=== PATIENT | male | born 1965 | race Caucasian/White ===

== ENCOUNTER 2023-12-18 02:32 | Emergency (ER) | payer OTHER, SELFPAY ==
[2023-12-18 02:33] VITALS: BP 138/84; PULSE 80; RESP 20; TEMP 36.2; O2SAT 97; BMI 30.6
[2023-12-18 02:35] VITALS: BP 138/84; PULSE 77; RESP 22; TEMP 36.2; O2SAT 98
--- NOTE | 2023-12-18 02:45 | EDS_ITS ---
HPI History of Present Illness Chief Complaint: Syncope Detail of Chief Complaint: Syncope, cramping lower abdominal pain, change in bowels and shaking LEs Informant: patient and spouse/S.O. Onset/Context/Timing Onset: Today Context: Sudden Onset Timing: Intermittent Quality: New syncopal episode Location: Residence Current Severity: Mild Maximum Severity: Severe Worsened by: Difficulty using restroom and abdominal pain Relieved by: Not applicable Associated Symptoms Associated Symptoms: Nausea, diaphoresis, pallor Narrative Narrative: Patient is a 58-year-old male with history of type 1 diabetes, hypertension, hyperlipidemia and hypothyroidism. Patient's last bowel movement was 0 and December 17.Patient to went to use restroom. He was unable to defecate. He began to walk when he became lightheaded fell. arrived he was pale he was diaphoretic. He is not on antithrombotic or anticoagulant. There was no loss conscious. Denies headache. He denies head pain. He denies malalignment of his teeth. He denies neck pain. He denies paresthesia, anesthesia or motor weakness. He denies cardiac or respiratory symptoms. He denies black or maroon-colored stool. He does endorse hard small stools for the past couple of days. He denies dysuria, frequency, urgency or hematuria. Denies according to his his mother had a history of renal stones. He informed me that he was not close to his parents. His also informed that his mother had a AAA. He denies back pain. Prior similar symptoms: No Recent Illness/Hospitalization: No [facility], [facility] Medical History (Updated 12/18/23 @ 04:[address] Javed Perez MD) Hypothyroid Type 1 diabetes Home Medications atorvastatin 20 mg tablet 20 mg PO DAILY 12/18/23 [History Last Taken Unknown] blood sugar diagnostic (OneTouch Verio test strips) 12/18/23 [History Last Taken Unknown] insulin aspart (niacinamide) (U-100) 100 unit/mL subcutaneous solution (Fiasp U- 100 Insulin) 80 unit subcut DAILY 12/18/23 [History Last Taken Unknown] insulin aspart (niacinamide)(U-100) 100 unit/mL(3 mL) subcutaneous pen (Fiasp FlexTouch U-100 Insulin) 1 sliding scale dose subcut PRN PRN carb ratio 12/18/23 [History Last Taken Unknown] levothyroxine 112 mcg tablet 112 mcg PO DAILY 12/18/23 [History Last Taken Unknown] lisinopril 10 mg tablet 10 mg PO DAILY 12/18/23 [History Last Taken Unknown] tirzepatide 2.5 mg/0.5 mL subcutaneous pen injector (Mounjaro) 5 mg subcut QWEEK 12/18/23 [History Last Taken Unknown] Allergy/AdvReac Type Severity Reaction Status Date / Time No Known Allergies Allergy Verified 12/18/23 02:35 Surgical History no surgical history no surgical history Social History (Updated 12/18/23 @ 02:[address] Javed Perez MD) household members: spouse and children Smoking Status: Never smoker ROS ROS ED Constitutional Constitutional ED: Denies chills, fever(s), subjective, sweats or weight loss Eyes Eyes: Denies blurry vision, change in vision or diplopia ENT ENT ED: Denies ear pain, rhinorrhea or sore throat Cardiovascular Cardiovascular: Denies chest pain, palpitations or racing heartbeat Respiratory/Chest Respiratory/Chest: Denies cough, dyspnea or dyspnea on exertion Gastrointestinal Gastrointestinal: Reports abdominal pain and nausea; Denies constipation, diarrhea, melena or vomiting Genitourinary Genitourinary ED: Denies dysuria, hematuria or urinary frequency Musculoskeletal Musculoskeletal: Denies back pain or neck pain Neurologic Neurologic: Denies headache(s) Hematologic/Lymphatic Hematologic/Lymphatic: Reports systems reviewed and no addt'l complaints, except as documented EXAM Physical Exam Const Vital Signs: 12/18/23 02:33 12/18/23 02:35 12/18/23 02:37 Temperature 97.1 F L 97.1 F L Temperature Source Temporal Temporal Pulse Rate 80 77 Pulse Rate [Lying] Pulse Rate [Sitting (for 1 minute prior to obtaining)] Pulse Rate [Standing (for 1 minute prior to obtaining)] Respiratory Rate 20 H 22 H Respiratory Effort Normal Respiratory Pattern Normal Blood Pressure 138/84 H 138/84 H Blood Pressure [Lying] Blood Pressure [Sitting (for 1 minute prior to obtaining)] Blood Pressure [Standing (for 1 minute prior to obtaining)] Blood Pressure Mean 102 102 Blood Pressure Mean [Lying] Blood Pressure Mean [Sitting (for 1 minute prior to obtaining)] Blood Pressure Mean [Standing (for 1 minute prior to obtaining)] Pulse Ox 97 98 Oxygen Delivery Method Room Air Room Air 12/18/23 03:38 Temperature Temperature Source Pulse Rate Pulse Rate [Lying] 70 Pulse Rate [Sitting (for 1 minute prior to obtaining)] 77 Pulse Rate [Standing (for 1 minute prior to obtaining)] 79 Respiratory Rate Respiratory Effort Respiratory Pattern Blood Pressure Blood Pressure [Lying] 138/72 H Blood Pressure [Sitting (for 1 minute prior to obtaining)] 134/80 H Blood Pressure [Standing (for 1 minute prior to obtaining)] 127/79 H Blood Pressure Mean Blood Pressure Mean [Lying] 94 Blood Pressure Mean [Sitting (for 1 minute prior to obtaining)] 98 Blood Pressure Mean [Standing (for 1 minute prior to obtaining)] 95 Pulse Ox Oxygen Delivery Method Positive well nourished and well developed Constitutional Narrative: Patient intermittently grimaces. He also has shaking of his legs. This occurs when he is having pain. Vital signs remarkable slightly low blood pressure. General Appearance ED: well developed; Negative for pallor HEENT Reports moist mucous membranes HEENT Narrative: There is an abrasion left forehead region. There is also a superficial skin tear/laceration left ear. The external auditory canal is normal. TMs are normal other than scarring from prior infections on the right. There is no clinical findings of basilar skull fracture. There is no septal deviation hematoma. There is no pain palpation over the left or right TMJ with opening closing his mouth close no evidence of malocclusion. Length of laceration 1 cm. Eyes PERRL and EOMs intact bilaterally Eyes Narrative: There is no subconjunctival hemorrhage. There is no nystagmus. General Eye ED: Negative for pale conjunctiva or scleral icterus Neck no lymphadenopathy, supple and no JVD Neck Narrative: There is no posterior midline pain with movement or palpation. Chest Wall inspection of chest normal and palpation of chest normal Resp normal respiratory effort and clear to auscultation bilaterally Cardio regular rate, regular rhythm, S1 normal heart sound, S2 normal heart sound and no murmurs GI Negative for non-tender, non-distended or hepatosplenomegaly GI Narrative: There is no pulsatile mass or abdominal bruit. There is mild discomfort to deep palpation lower quadrants. Inspection: abdominal distention Auscultation: hypoactive bowel sounds Palpation: soft; Negative for guarding, splenomegaly, mass or rebound tenderness present Back/Spine no CVA tenderness Extremity normal to inspection General Extremety ED: Negative for edema or tenderness General Extremity: Negative for edema Neuro oriented x3, CN's II-XII intact bilaterally and no sensory deficits noted Sensorium / Orientation: alert Motor Exam: strength 5/5 throughout Psych mental status grossly normal Psych Narrative: Patient became agitated because of the pain and does not know why he is having pain in his legs shaking. He was informed that is why I am asking questions. Skin no rashes or lesions noted and skin turgor normal Skin Narrative: Superficial laceration is noted left ear. General Skin Exam: elasticity normal; Negative for jaundice or pallor Trauma: abrasion MDM MDM MDM Narrative Medical decision making narrative: Based on the [place] CT head rule and [place] rule imaging of the head is not indicated or needed. C-spine was cleared per Nexus criteria. BGT was performed by nursing staff since he is diabetic. He is not hypoglycemic. Tetanus was updated. KUB was obtained. Concern patient may have obstipation as a cause of his cramping lower abdominal pain and difficulty having bowel movements. Patient's near single episode was due to vasovagal episode based on history. Patient was placed on the monitor to assess for any dysrhythmia. CBC was obtained assess white count and H&H. I was informed by nursing staff at 0303 that patient went to the restroom and states he had very dark black stool. Unfortunately, he flushed the toilet and this could not be inspected. Rectal exam was performed for this reason. There is no fissures, fistulas or hemorrhoids noted. Patient has good rectal tone. Prostate is normal size. Material that was in the rectum is a light brown in color. Stool was sent for Hemoccult. History & Record Review Additional record(s) reviewed:: Prior outpatient record (Laboratory results from the clinic clinic drawn on November 01 revealed a normal comprehensive metabolic panel and lipid panel. TSH was slightly low at 0.11. Patient states his Synthroid dose was adjusted downward.), Prior labs and No prior records (At [facility]. He is a clinic clinic patient. Will look for any recent laboratory studies on [facility].) Lab Data Attestation: I reviewed the patient's lab results. Lab results narrative: White count is elevated with predominant lymphocytes. H&H and indices are normal. Blood sugar was slightly elevated 123. Basic metabolic panel reveals a glucose of 136 with normal CO2 anion gap. BUN is slightly low at 19 with a creatinine of 1.1 and a BUN to creatinine ratio 17:1. Stool for occult blood is positive. Since patient had a near syncopal spell will obtain orthostatic vital signs. UA is remarkable so. 1.025 and ketones otherwise negative. Labs: Laboratory Results - last 24 hr 12/18/23 12/18/23 12/18/23 02:38 02:50 04:20 WBC 12.7 H RBC 5.23 Hgb 14.0 Hct 43.9 MCV 83.9 MCH 26.8 L MCHC 31.9 L RDW Std Deviation 43.1 RDW Coeff of Lauren 14.0 Plt Count 256 MPV 9.4 Immature Gran % (Auto) 0.200 Neut % (Auto) 45.9 L Lymph % (Auto) 41.8 H Clinch % (Auto) 6.5 Eos % (Auto) 4.7 Baso % (Auto) 0.9 Absolute Neuts (auto) 5.8 Absolute Lymphs (auto) 5.32 H Nucleated RBC % 0 Differential Comment SCANNED Diff Path Review May foll Sodium 140 Potassium 3.5 Chloride 109 H Carbon Dioxide 26.0 Anion Gap 5 BUN 19 H Creatinine 1.10 Estim Creat Clear Calc 87.98 Est GFR (MDRD) Af Amer 88 Est GFR (MDRD) Non-Af 73 BUN/Creatinine Ratio 17.3 Glucose 136 H Calcium 9.5 Urine Color Yellow Urine Clarity Clear Urine pH 5.0 Ur Specific [place] 1.025 Urine Protein Negative Urine Glucose (UA) Normal Urine Ketones 50 H Urine Occult Blood Negative Urine Nitrite Negative Urine Bilirubin Negative Urine Urobilinogen Normal Ur Leukocyte Esterase Negative Urine RBC 0 SEEN Urine WBC 0 SEEN Ur Squamous Epith Cells 0 SEEN Urine Bacteria 0 SEEN Urine Mucus 0 SEEN POC Glucose 123 H Radiography Chest X-Ray - ED: Read by ED Physician (Three-view x-ray of the abdomen was obtained. The chest portion reveals normal cardiac silhouette size. There is no widening of mediastinum. There is no perihilar lymphadenopathy. Lung parenchyma is normal. There is no evidence of pneumothorax or effusion. Osseous structures were unremarkable.) Diagnostic Testing: Clinical Impression(s) from Imaging Studies Acute Abdomen Series 12/18/23 03:15 IMPRESSION: 1. Liquid feces in the transverse colon, which may be due to malabsorption. Ileus is not excluded. 2. Otherwise, nonspecific nonobstructive bowel gas pattern. 3. No evidence for acute cardiopulmonary pathology. Electronically Signed: Renato Sosa MD at 3:40 EST Reading Location ID and State: [facility] / [place] , Service support , Rhythm Strip Rhythm Strip: Sinus Rhythm Rate: 78 Ectopy: None Treatment and Re-Evaluation :: I was informed by his nurse at 0400 that orthostatics were negative. He still complain of cramping abdominal pain. Will at this point treat with Bentyl for the cramping pain. This could be bladder spasm. Awaiting UA. Also with him having chills and leukocytosis slight elevated white count this may be due to viral illness. Will treat with 600 mg of acetaminophen. Patient was informed of his laboratory results at 0444. He states he feels better and would like to go home. Discharge Plan Triage Chief Complaint: Syncope ED Provider: Javed Perez Dx/Rx/DC Orders Clinical Impression: Vasovagal near syncope, Leukocytosis, Forehead contusion, Controlled type 1 diabetes mellitus with hyperglycemia, History of hypothyroidism, Positive fecal occult blood test, Laceration of ear, external, left, Acute dehydration, Ketosis Instructions: ED Laceration Superficial No Stitch, ED Near-Fainting- Vagal Reaction Prescriptions: No Action atorvastatin 20 mg tablet 20 mg PO DAILY Patient Comments: TAKE 1 TABLET BY MOUTH EVERY DAY (DME) OneTouch Verio test strips Strip MISCELLANEOUS Patient Comments: TEST 6 TIMES PER DAY Fiasp U-100 Insulin 100 unit/mL solution 80 unit subcut DAILY Patient Comments: USE 80 UNITS IN PUMP DAILY levothyroxine 112 mcg tablet 112 mcg PO DAILY Patient Comments: TAKE 1 TABLET BY MOUTH ONCE DAILY. TAKE ON EMPTY STOMACH. FOR THYROID. Fiasp FlexTouch U-100 Insulin 100 unit/mL (3 mL) insulin pen 1 sliding scale dose SUBCUT PRN PRN (Reason: carb ratio) Patient Comments: USE CARB RATIO 1:7 AND SENSITIVITY 1:25 TARGET 120 MG/DL, MAX DOSE 45 UNITS lisinopril 10 mg tablet 10 mg PO DAILY Patient Comments: TAKE 1 TABLET BY MOUTH EVERY DAY Mounjaro 2.5 mg/0.5 mL pen injector 5 mg SUBCUT QWEEK Patient Comments: INJECT 2.5 MG SUBCUTANEOUSLY WEEKLY Primary Care Provider: Rafael Gonsales Referrals: Rafael Gonsales MD [Primary Care Provider] - As Needed Disposition Disposition: Home, Self Care
[2023-12-18 02:55] LABS: Bedside Glucose 123 mg/dL (74-106)
[2023-12-18 03:08] LABS: Absolute Lymphocyte Count 5.32 X10^3/uL (0.83-4.51); Absolute Neutrophil Count 5.8 X10^3/uL (2.0-7.7); Basophil# 0.11 X10^3/uL; Basophil% 0.9 % (0-1); Eosinophils% 4.7 % (0-5); Hematocrit 43.9 % (40-54); Lymphocyte # 5.32 X10^3/ul (0.83-4.51); Lymphocyte % 41.8 % (19-41); Mean Corp Hgb Conc 31.9 g/dL (32-36); Mean Corpuscular Hgb 26.8 pg (27.0-32.0); Mean Corpuscular Volume 83.9 fL (80-94); Mean Platelet Vol. 9.4 fl (6.2-12.0); Monocyte# 0.83 X10^3/uL; Monocyte% 6.5 % (0-10); NRBC Flagged by Analyzer 0 % (0-5); Neutrophil # 5.84 X10^3/uL (2.7-7.7); Neutrophil % 45.9 % (47-70); POSITIVE DIFFERENTIAL YES; POSITIVE MORPHOLOGY YES; Platelet Count 256 K/mm3 (150-450); RBC Distribution Width SD 43.1 fl (35.1-43.9); Red Blood Count 5.23 M/mm3 (4.6-6.2); White Blood Count 12.7 K/mm3 (4.4-11.0)
[2023-12-18 03:11] LABS: Differential Indicated SCAN CRITERIA MET
--- NOTE | 2023-12-18 03:15 | RAD_ITS ---
EXAM: XR ABDOMEN, 2 VIEWS AND XR CHEST, 1 VIEW CLINICAL INDICATION: Cramping abdominal pain, obstipation Cramping abdominal pain, obstipation TECHNIQUE: Frontal view of the chest, frontal view of the abdomen/pelvis and upright or decubitus view of the abdomen. COMPARISON: No relevant prior studies available. FINDINGS: CHEST: LUNGS AND PLEURAL SPACES: Unremarkable. No consolidation or edema. No pneumothorax. No effusion. HEART: Unremarkable. Cardiac silhouette not enlarged. MEDIASTINUM: Central airways and mediastinal contour are unremarkable. ABDOMEN: INTRAPERITONEAL SPACE: No free air. GASTROINTESTINAL TRACT: There are air-fluid levels in the transverse colon on upright views, which suggest impending diarrhea. This may be due to malabsorption. Non-obstructive. No bowel or stomach distention. ORGANS: Unremarkable as visualized. No organomegaly. No abnormal calcifications. TUBES, LINES AND DEVICES: None. BONES/JOINTS: There are multilevel degenerative changes in the visualized spine. SOFT TISSUES: No acute findings. RAD/Acute Abdomen Inc Chest IMPRESSION: 1. Liquid feces in the transverse colon, which may be due to malabsorption. Ileus is not excluded. 2. Otherwise, nonspecific nonobstructive bowel gas pattern. 3. No evidence for acute cardiopulmonary pathology. Electronically Signed: Renato Sosa MD at 3:40 EST Reading Location ID and State: [facility] / [place] , Service support ,
--- OUTSIDE RECORDS SUMMARY | 2023-12-18 03:20 | XMS RPT_ITS | CCD ---
Author Name Unknown Address Formerly [facility] [place] [address] Organization [facility] Care Team Providers Care Technical Account Executive Name Role Phone Tristin NOVAK, Rafael Dasilva Primary Care Provider TRISTIN, RAFAEL Dasilva Primary Care Unavailable BABIUCH, EMILY Referring Unavailable BABIUCH, EMILY Attending Unavailable CROW, RAFAEL Dasilva Primary Care Unavailable BABIUCH, EMILY Attending Unavailable BABIUCH, EMILY Referring Unavailable BABIUCH, EMILY Attending Unavailable CROW, RAFAEL Dasilva Primary Care Unavailable BABIUCH, EMILY Referring Unavailable BABIUCH, EMILY Attending Unavailable CROW, RAFAEL Dasilva Primary Care Unavailable BABIUCH, EMILY Referring Unavailable CROW, RAFAEL Dasilva Primary Care Unavailable WINIFRED BROOKS Attending Unavailable WINIFRED BROOKS Referring Unavailable CROW, RAFAEL Dasilva Primary Care Unavailable CROW, RAFAEL Dasilva Primary Care Unavailable CROW, RAFAEL Dasilva Attending Unavailable BABIUCH, EMILY Attending Unavailable CROW, ROHAN Primary Care Unavailable BABIUCH, EMILY Referring Unavailable CROW, RAFAEL Dasilva Primary Care Unavailable WINIFRED BROOKS Attending Unavailable CROW, RAFAEL Dasilva Primary Care Unavailable WINIFRED BROOKS Attending Unavailable CROW, ROHAN Primary Care Unavailable BABIUCH, EMILY Attending Unavailable CROW, ROHAN Primary Care Unavailable BABIUCH, EMILY Referring Unavailable CROW, RAFAEL Dasilva Referring Unavailable CROW, ROHAN Primary Care Unavailable CROW, RAFAEL Dasilva Attending Unavailable TRISTIN, ROHAN Primary Care Unavailable Medications Current Medications Medication Drug Class(es) Dates Sig (Normalized) Sig (Original) phenylephrine hydrochloride 25 mg/ml ophthalmic solution (1 source) alpha-1 Adrenergic Agonist Start: 02-22-2023 End: 02-22-2023 PHENYLephrine 2.5 % 1 Drop (AK-DILATE, HALEIGH-SYNEPHRINE) tropicamide 10 mg/ml ophthalmic solution (1 source) Anticholinergic Start: 02-22-2023 End: 02-22-2023 tropicamide 1 % 1 Drop (MYDRIACYL) Completed/Discontinued Medications Medication Drug Class(es) Dates Sig (Normalized) Sig (Original) 0.05 ml aflibercept 40 mg/ml injection (6 sources) Vascular Endothelial Growth Factor Inhibitor Start: 07-12-2023 End: 07-12-2023 aflibercept intravitreal injection 2 mg/0.05 mL (EYLEA) Problems Problem Classification Problem Date Documented Date Episodic/Chronic Diabetes mellitus with complications (20 sources) Type 1 diabetes mellitus; Translations: [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, right eye] Onset: 09-14-2016 09-14-2016 Chronic Diabetes mellitus without complication (1 source) Insulin pump present; Translations: [Presence of insulin pump (external) (internal)] 07-21-2023 Episodic Disorders of lipid metabolism (20 sources) Hyperlipidemia; Translations: [Hyperlipidemia, unspecified] Onset: 11-03-2015 11-03-2015 Chronic Esophageal disorders (1 source) Gastroesophageal reflux disease without esophagitis; Translations: [Gastro-esophageal reflux disease without esophagitis] 10-19-2023 Chronic Essential hypertension (20 sources) Hypertensive disorder; Translations: [Essential (primary) hypertension] Onset: 11-03-2015 11-03-2015 Chronic Fever of unknown origin (1 source) Fever, unspecified; Translations: [Fever, unspecified] Episodic Immunizations and screening for infectious disease (1 source) Vaccination needed; Translations: [Encounter for immunization] Episodic Other nutritional; endocrine; and metabolic disorders (20 sources) Obese class I; Translations: [Obesity, unspecified] Onset: 04-23-2019 04-23-2019 Chronic Other nutritional; endocrine; and metabolic disorders (3 sources) Insulin resistance; Translations: [Metabolic syndrome] Chronic Thyroid disorders (20 sources) Acquired hypothyroidism; Translations: [Hypothyroidism, unspecified] Onset: 11-03-2015 11-03-2015 Chronic Results Test Name Value Interpretation Reference Range Facil ity Vital Signs Date Time Vital Sign Value Performing Clinician Ramya bacon 06-17-2023 09:44-0400 Body weight 99.79 kg Rafael Crow MD Work Phone: [facility] 06-17-2023 09:44-0400 Diastolic blood pressure 82 mm[Hg] Rafael Crow MD Work Phone: [facility] 06-17-2023 09:44-0400 Heart rate 72 /min Rafael Crow MD Work Phone: [facility] 06-17-2023 09:44-0400 Respiratory rate 18 /min Rafael Crow MD Work Phone: [facility] 06-17-2023 09:44-0400 Systolic blood pressure 118 mm[Hg] Rafael Crow MD Work Phone: [facility] 07-14-2022 08:27-0400 Body temperature 97.81 [degF] Rafael Crow MD Work Phone: [facility] 07-14-2022 08:27-0400 Body weight 97.52 kg Rafael Crow MD Work Phone: [facility] 07-14-2022 08:27-0400 Diastolic blood pressure 68 mm[Hg] Rafael Crow MD Work Phone: [facility] 07-14-2022 08:27-0400 Heart rate 64 /min Rafael Crow MD Work Phone: [facility] 07-14-2022 08:27-0400 Respiratory rate 16 /min Rafael Crow MD Work Phone: [facility] 07-14-2022 08:27-0400 Systolic blood pressure 118 mm[Hg] Rafael Crow MD Work Phone: [facility] Encounters Encounter Date Encounter Type Care Provider Facility Start: 11-22-2023 End: 11-22-2023 ambulatory RAFAEL CROW Facility:[facility] Start: 11-09-2023 End: 11-09-2023 ambulatory RAFAEL CROW Facility:[facility] Start: 11-01-2023 End: 11-02-2023 ambulatory RAFAEL CROW Facility:[facility] Start: 10-31-2023 Telephone encounter Rafael morejon MD Work Phone: Internal [facility] Procedures Date Procedure Procedure Detail Performing Clinician Start: 08-26-2023 PFIZER-BIONTECH COVI D-19 VACCINE ( SEASON) AGE 12+ YR Fabiola Fuller MD Work Phone: Start: 08-26-2023 INFLUENZA VACCINE, A GE 6 MO - 64 YR, QUADRIVALENT (AFLURIA, FLULAVAL, FLUZONE) Fabiola Fuller MD Work Phone: Start: 07-12-2023 End: 07-12-2023 Intravitreal njx pharmacologic agt spx Emily Abrams MD Work Phone: Start: 07-12-2023 Computerized ophthal richard imaging retina Emily Abrams MD Work Phone: Start: 02-22-2023 End: 02-22-2023 Intravitreal njx pharmacologic agt spx Emily Abrams MD Work Phone: Start: 02-22-2023 Computerized ophthal richard imaging retina Emily Abrams MD Work Phone: Start: 12-14-2022 End: 12-14-2022 Intravitreal njx pharmacologic agt spx Emily Abrams MD Work Phone: Start: 12-14-2022 Computerized ophthal richard imaging retina Emily Abrams MD Work Phone: Start: 09-24-2022 INFLUENZA VACCINE QUADRIVALENT 6 MO - 64 YRS IM Rafael Crow MD Work Phone: Start: 07-14-2022 PFIZER-BIONTECH COVI D-19 VACCINE, AGE 12+ YR ([facility] TOP) Rafael Crow MD Work Phone: Start: 07-14-2022 Adult depression scr eening assessment Rafael Crow MD Work Phone: Start: 02-26-2021 Adult depression scr eening assessment Fadi Mcconnell MD Work Phone: Start: 02-14-2018 Colonoscopy Fadi haddad MD Work Phone: Plan of Treatment Date Care Activity Detail Author Start: 09-10-2031 Urine microalbumin profile [facility] Start: 02-15-2028 Colonoscopy COLONOSCOPY [facility] Start: 02-15-2028 COLORECTAL CANCER SCREENING COLORECTAL CANCER SCREENING [facility] Start: 09-20-2024 Hepatitis C antibody, confirmatory test Dilated Retinal Exam [facility] Start: 07-06-2024 PROSTATE CANCER SCREENING DISCUSSION PROSTATE CANCER SCREENING DISCUSSION [facility] Start: 06-17-2024 3 comp foot exam completed DIABETIC FOOT EXAM [facility] Start: 06-17-2024 ANNUAL PCP TEAM CHRONIC DISEASE VISIT ANNUAL PCP TEAM CHRONIC DISEASE VISIT [facility] Start: 02-23-2024 Hepatitis C antibody, confirmatory test DILATED RETINAL EXAM [facility] Start: 11-02-2023 End: 02-01-2024 ALBUMIN/CREAT RATIO RND UR ALBUMIN/CREAT RATIO RND UR Lab Routine 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) Expected: 11/02/2023, Expires: 02/01/2024 [facility] Work Phone: Immunizations Immunization Date Immunization Notes Care Provider Nydia reddy 08-26-2023 COVID-19 vaccine, ag e 12+ yr, season (PFIZER-BIONTECH) Immunization Bishop Work Phone: [facility] Work Phone: 08-26-2023 influenza, injectabl e, quadrivalent, contains preservative Immunization Bishop Work Phone: [facility] Work Phone: 09-24-2022 influenza, injectabl e, quadrivalent, contains preservative Immunization Bishop Work Phone: [facility] Work Phone: 07-14-2022 COVID-19 vaccine, ag e 12+ yr (PFIZER-BIONTECH - [place] TOP) Rafael Crow MD Work Phone: [facility] Work Phone: 09-10-2021 influenza, injectabl e, quadrivalent, contains preservative Fadi Mcconnell MD Work Phone: [facility] Work Phone: 09-10-2021 tetanus toxoid, redu matthew diphtheria toxoid, and acellular pertussis vaccine, adsorbed Fadi Mcconnell MD Work Phone: [facility] Work Phone: 02-25-2021 COVID-19 vaccine, ag e 12+ yr (PFIZER-BIONTECH - [facility]) Fadi Mcconnell MD Work Phone: [facility] 02-04-2021 COVID-19 vaccine, ag e 12+ yr (PFIZER-BIONTECH - [facility]) Fadi Mcconnell MD Work Phone: [facility] Work Phone: 09-24-2020 pneumococcal polysaccharide vaccine, 23 valent Fadi Mcconnell MD Work Phone: [facility] Work Phone: 09-09-2020 influenza, seasonal, injectable Fadi Mcconnell MD Work Phone: [facility] Work Phone: 01-18-2020 zoster vaccine recombinant Fadi Mcconnell MD Work Phone: [facility] 08-24-2019 influenza, injectabl e, quadrivalent, contains preservative Fadi Mcconnell MD Work Phone: [facility] 2019 zoster vaccine recombinant Fadi Mcconnell MD Work Phone: [facility] Work Phone: 09-04-2018 influenza, seasonal, injectable Fadi Mcconnell MD Work Phone: [facility] Work Phone: 09-05-2017 influenza, injectabl e, quadrivalent, preservative free Fadi Mcconnell MD Work Phone: [facility] Work Phone: 08-30-2016 influenza, injectabl e, quadrivalent, preservative free Fadi Mcconnell MD Work Phone: [facility] Work Phone: 10-15-2015 influenza, seasonal, injectable Fadi Mcconnell MD Work Phone: [facility] Work Phone: 09-08-2015 influenza, seasonal, injectable, preservative free Fadi Mcconnell MD Work Phone: [facility] Work Phone: Payers Date Payer Category Payer Private Health Insurance [employer] [id number] 2018-Present [phone] [address] [place] [address] O [id number] 2018 Private Health Insurance [employer] [id number] 2018-Present [phone] [address] [place] [address] HMO [id number] 2018 Unknown [id number] Social History Date Type Detail Facility Start: 11-03-2015 End: 07-14-2022 Tobacco smoking status NHIS Never smoked tobacco [facility] Work Phone: Start: 11-03-2015 End: 07-14-2022 Tobacco use and exposure Smokeless tobacco non-user [facility] Work Phone: Start: 01-12-2022 End: 09-20-2023 Alcohol intake Current non-drinker of alcohol (finding) [facility] Start: 1965 Sex Assigned At Not on file C [facility] Start: 03-25-2022 End: 04-04-2022 Exposure to SARS-CoV-2 (event) Yes [facility] Start: 07-14-2022 History SDOH Physica l Activity DPW 4 [facility] Start: 07-04-2022 End: 07-14-2022 Exposure to SARS-CoV-2 (event) Not sure [facility] Work Phone: Start: 07-14-2022 End: 05-03-2023 History of Social function [facility] Work Phone: Start: 07-14-2022 End: 05-03-2023 Tobacco use panel [facility] Work Phone: Adult Depression Screening Assessment 0 [facility] Work Phone: Medical Equipment Procedure Code Equipment Code Equipment Origin al Text Equipment Identifier Dates Start: 12-05-2018 End: 10-21-2022 Goals Date Patient Goal Desired Activity /State Personal health goal Clinical Notes 07-12-2017 to 11-22-2023 Telephone Encounter - Karen Baires RN - 10/31/2023 4:58 PM ESTTelephone Encounter - Rafael Crow MD - 10/31/2023 4:42 PM ESTAddendum Note - Winifred Brooks MD - 09/05/2023 12:15 PM EDT Note Date & Type Note Facility 11-22-2023 Note HNO ID: [id number] Author: Emily Abrams MD Service: ? 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) - right eye: s/p Eylea - last was (09/20/23 - 9 weeks) - continued intraretinal fluid on OCT today that is improved from prior - recommend repeat anti-VEGF today right eye - left eye: s/p Avastin x 1 (06/09/2016) AND s/p Eylea - last was (09/20/23 - 9 weeks) - continued intraretinal fluid OCT today that is improved from prior - recommend repeat anti-VEGF today - OCT with improved fluid today at the 9 week interval in both eyes (was slightly worse at 10 weeks in both eyes) - HOLD at 8-9 weeks for Eylea both eyes - stopped prednisolone acetate 1% right eye without changes in Intraocular pressure over one month Any documentation recorded by the scribe accurately reflects the service I personally performed and the decisions made by myself, Emily Abrams MD. I have confirmed and edited as necessary the relevant ophthalmic history, ROS, and the neuro exam findings as obtained by others. I have seen and examined Micha Mederos. I have discussed the case and the management of this patient's care with the Resident/Fellow, if applicable. I also have reviewed and agree with the assessment and plan as stated above and agree with all of its relevant components. [facility] 11-09-2023 Note HNO ID: [id number] Author: Rafael Crow MD Service: ? Author Type: Physician Type: Progress Notes Filed: 11/09/2023 10:56 PM Note Text: This note was created using Jodange. Subjective Micha Mederos is a 58 year old male was here for follow up. He was doing well, and had no concerns. We reviewed his lab results. His glucose was more than 70% at goal. Review of Systems Constitutional: Negative for fatigue and unexpected weight change. Eyes: Negative for visual disturbance. Respiratory: Negative for shortness of breath. Cardiovascular: Negative for chest pain and palpitations. Gastrointestinal: Negative for diarrhea and nausea. Neurological: Negative for dizziness. 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 (Hcc) Type 1 Diabetes Mellitus With Severe Nonproliferative Retinopathy of Left Eye and Macular Edema (Hcc) Obesity, Class I, Bmi 30.0-34.9 (See Actual Bmi) Social History Tobacco Use Smoking status: Never Smokeless tobacco: Never Vaping Use Vaping Use: Never used Substance Use Topics Alcohol use: No Drug use: No Current Outpatient Medications Medication Sig tirzepatide (MOUNJARO) 5 mg/0.5 mL pen injector Inject 5 mg subcutaneously one time a week. atorvastatin (LIPITOR) 20 mg tablet Take 1 tablet by mouth once daily. lisinopril (ZESTRIL) 10 mg tablet Take 1 tablet by mouth once daily. pantoprazole DR (PROTONIX) 40 mg tablet TAKE 1 TABLET BY MOUTH EVERY DAY insulin aspart U-100 (NOVOLOG) 100 unit/mL Use up to 100 units in pump daily levothyroxine (SYNTHROID) 125 mcg tablet Take 1 tablet by mouth once daily. Take on empty stomach. For Thyroid OMNIPOD 5 G6 INTRO KIT, GEN 5, crtg INJECT 1 EACH SUBCUTANEOUSLY DIRECTED. OMNIPOD 5 G6 PODS, GEN 5, crtg Inject 1 Each subcutaneously every 72 hours. (use one pod every 72 hours) Blood-Glucose Sensor (DEXCOM G6 SENSOR) antony Use with dexcom tractor expert for continuous glucose monitoring. Replace every 10 days. Dx:E10.65 Blood-Glucose Transmitter (DEXCOM G6 TRANSMITTER) antony Use with dexcom sensors for continuous glucose monitoring. Replace every 3 months. E10.65 Insulin [place], Disposable, (PEN NEEDLE) 30 gauge x 5/16 ndle Use with insulin up to 7 times daily Blood-Glucose Meter,Continuous (DEXCOM G6 IT ARCHITECT) misc Use to monitor blood sugars continuously with G6 sensors. E10.65 blood sugar diagnostic (BLOOD GLUCOSE TEST) test strip Test blood sugar(s) 6 times daily. Dx: Type 2 DM - Uncontrolled E11.65 Insulin: Yes Blood-Glucose Meter (ACCU-CHEK LUKAS PLUS METER) misc Use to test blood sugars 6 times a day. Insulin: Yes DX: E11.319 Lancets lancets Test blood sugar(s) 6 times daily. Dx: E11.319 Insulin: Yes glucagon (BAQSIMI) 3 mg/actuation nasal spray Use 1 [place] in the nose as needed. May repeat after 15 minutes using a new device if there is no response. (Patient not taking: Reported on 07/12/2023) No current facility-administered medications for this visit. Objective BP 120/68 (BP Site: Left Arm, BP Position: Sitting, BP Cuff Size: Large Adult) Pulse 72 Temp 36.8 ?C (98.3 ?F) (Temporal) Resp 18 Wt 98.3 kg (216 lb 12.8 oz) BMI 31.11 kg/m? Physical Exam Constitutional: Appearance: Normal appearance. Cardiovascular: Rate and Rhythm: Normal rate and regular rhythm. Heart sounds: No murmur heard. No gallop. Pulmonary: Breath sounds: Normal breath sounds. Musculoskeletal: Right lower leg: No edema. Left lower leg: No edema. Component Latest Ref Rng AND Units 11/01/2023 Protein, Total 6.3 - 8.0 g/dL 6.8 Albumin 3.9 - 4.9 g/dL 4.2 Calcium 8.5 - 10.2 mg/dL 9.8 Bilirubin, Total 0.2 - 1.3 mg/dL 1.2 Alkaline Phosphatase 38 - 113 U/L 85 AST 14 - 40 U/L 19 ALT 10 - 54 U/L 19 Glucose 74 - 99 mg/dL 99 BUN 9 - 24 mg/dL 17 Creatinine 0.73 - 1.22 mg/dL 1.18 Sodium 136 - 144 mmol/L 139 Potassium 3.7 - 5.1 mmol/L 4.9 Chloride 97 - 105 mmol/L 104 CO2 22 - 30 mmol/L 25 Anion Gap 9 - 18 mmol/L 10 eGFR >=60 mL/min/1.73mA? 72 Cholesterol, Total <200 mg/dL 141 Triglyceride <150 mg/dL 58 HDL Cholesterol >39 mg/dL 53 Non HDL Cholesterol <130 mg/dL 88 Fasting Time hrs 12 VLDL Cholesterol <30 mg/dL 12 TC:HDL Ratio <5.10 2.66 LDL Cholesterol <100 mg/dL 76 LDL:HDL Ratio <2.54 1.43 Creatinine, Ur Random (UCRR) 20.0 - 300.0 mg/dL 130.4 Albumin, Urine Random mg/L <12.0 Albumin/Creat Ratio <30 mg/g <9 Hemoglobin A1C 4.3 - 5.6 % 6.6 (H) Estimated Average Glucose mg/dL 143 TSH 0.270 - 4.200 mIU/L 0.110 (L) Assessment and Plan 1. 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 2. Primary hypertension - ICD9: 401.9, ICD10: I10 - Controlled 3. Hyperlipidemia, unspecified hyperlip (more content not included)... [facility] 10-31-2023 Miscellaneous Notes Patient notified of fasting lab orders. Karen Baires RN Fasting labs, urine test ordered. Patient calling to say he has an appointment scheduled on 11/09 for DM follow up. Asking if any labs needed prior to this appointment? He has a yearly exam scheduled 01/06/24. He did not want to schedule a yearly exam on 11/09 due to he says he has time constraints. Karen Baires, RN documented in this encounter [facility] 10-31-2023 Miscellaneous Notes Patient has been identified by name and date of : Yes Patient phones for refill(s): Requested Prescriptions Pending Prescriptions Disp Refills atorvastatin (LIPITOR) 20 mg tablet 90 tablet 3 Sig: Take 1 tablet by mouth once daily. Date of last office visit in primary care: 06/17/2023 Date of next office visit in primary care: 01/06/2024 Last 2 Encounter Wt Readings: Date: Wt: 06/17/2023 99.8 kg (220 lb) 07/14/2022 97.5 kg (215 lb) Please advise. Thank you. GWEN Long. documented in this encounter [facility] 10-20-2023 Miscellaneous Notes Patient has been identified by name and date of : Yes Patient phones for refill(s): Requested Prescriptions Pending Prescriptions Disp Refills lisinopril (ZESTRIL) 10 mg tablet 90 tablet 3 Sig: Take 1 tablet by mouth once daily. Date of last office visit in primary care: 06/17/2023 Date of next office visit in primary care: 01/06/2024 Last 2 Encounter Wt Readings: Date: Wt: 06/17/2023 99.8 kg (220 lb) 07/14/2022 97.5 kg (215 lb) Previous labs/tests for medication: Blood Pressure: BUN (mg/dL) Date Value 10/11/2022 12 09/08/2021 13 Sodium (mmol/L) Date Value 10/11/2022 141 09/08/2021 140 Last 1 Encounter BP Readings: Date: BP: 06/17/2023 118/82 Please advise. Thank you. Bethany Coronel LPN. documented in this encounter [facility] 10-20-2023 Miscellaneous Notes Requester: Pharmacy Patients last Endocrinology visit occurred 08/18/23. Follow-up evaluation has been established Upcoming Endocrinology Appointments - Next 365 Days No appointments to display . Requested Prescriptions Pending Prescriptions Disp Refills pantoprazole DR (PROTONIX) 40 mg tablet [Pharmacy Med Name: PANTOPRAZOLE SOD DR 40 MG TAB] 90 tablet 1 Sig: TAKE 1 TABLET BY MOUTH EVERY DAY If patient is due for an appointment please route to provider for refill consideration and also to the endo scheduling pool. PSS NOTE: Patient needs scheduled appointment No documented in this encounter [facility] 09-29-2023 Miscellaneous Notes Endocrinology & Metabolism Social Work Progress Note Provider Action / FYI N/A Micha Mederos [id number] Type of Contact: telephone Endocrine [employer] Referral Reason: Mental Health Resources Contact Made?: No- family worker left a voicemail with her name, number, and requesting a return phone call. Note/Intervention: n/a Unite referral placed: n/a Signature: EDWAR Diehl Patient Name: Micha Nancehn Date: 09/29/2023 Time: 4:25 PM Pager/Contact #: [phone] During this patient contact I spent approximately 20 minutes in reviewing the patient's chart and counseling regarding community resources and coordinating care. documented in this encounter [facility] 09-20-2023 Note HNO ID: [id number] Author: Emily Abrams MD Service: ? 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) - right eye: s/p Eylea - last was (07/12/23 - 10 weeks) - continued intraretinal fluid on OCT today - recommend repeat anti-VEGF today right eye - left eye: s/p Avastin x 1 (06/09/2016) AND s/p Eylea - last was (07/12/23 - 10 weeks) - continued intraretinal fluid OCT today - recommend repeat anti-VEGF today - OCT with worse fluid today at the 10 week interval in both eyes - HOLD at 8-10 weeks for Eylea both eyes - stopped prednisolone acetate 1% right eye without changes in Intraocular pressure over one month Any documentation recorded by the scribe accurately reflects the service I personally performed and the decisions made by myself, Emily Abrams MD. I have confirmed and edited as necessary the relevant ophthalmic history, ROS, and the neuro exam findings as obtained by others. I have seen and examined Micha Mederos. I have discussed the case and the management of this patient's care with the Resident/Fellow, if applicable. I also have reviewed and agree with the assessment and plan as stated above and agree with all of its relevant components. [facility] 09-05-2023 Miscellaneous Notes Addended by: WINIFRED BROOKS on: 09/05/2023 12:15 PM Modules accepted: Orders Requester: Pharmacy Patients last Endocrinology visit occurred 08/18/23. Follow-up evaluation has been established Upcoming Endocrinology Appointments - Next 365 Days No appointments to display . Requested Prescriptions Pending Prescriptions Disp Refills OZEMPIC 0.25 mg or 0.5 mg (2 mg/3 mL) pen [Pharmacy Med Name: OZEMPIC 0.25-0.5 MG/DOSE PEN] 9 mL 1 Sig: INJECT 0.5 MG SUBCUTANEOUSLY ONE TIME PER WEEK If patient is due for an appointment please route to provider for refill consideration and also to the endo scheduling pool. PSS NOTE: Patient needs scheduled appointment No documented in this encounter [facility] 09-02-2023 Miscellaneous Notes Faxed chart notes to [facility]. Successfully transmitted to [phone] Lexi Jeffers [employer] [facility] documented in this encounter [facility] 08-25-2023 Miscellaneous Notes Called pt to get rescheduled for psych appt. Left vm EDWAR Diehl documented in this encounter [facility] 08-18-2023 Note HNO ID: [id number] Author: Marcelo Guerra MA Service: ? Author Type: Guest Services Agent Type: Procedures Filed: 08/18/2023 12:13 PM Note Text: [facility] 08-18-2023 Note HNO ID: [id number] Author: Winifred Brooks MD Service: ? Author Type: Physician Type: Progress Notes Filed: 08/18/2023 12:13 PM Note Text: Reason for follow up: T1D August 18, 2023 Virtual visit I have communicated my name and active licensure. The patient's identity and physical location were verified at the time of this visit. Either the patient or their legal representative personal service has been informed of the risks and benefits of -- and alternatives to -- treatment through a remote evaluation and consents to proceed with the evaluation remotely. HISTORY OF PRESENT ILLNESS; - very physically active - omnipod 5 has been started! - thinking insulin on board is too long - also when he eats even small amount of high glycemic index food he will spike - ozempic 1 mg at this time - down to 214.5 lb would like to get to 208 lb - last 30-60 days has not been doing as much Current Regimen Ozempic 1 weekly Omnipod 5 Metformin 1000 qHS Hypothyroid on levothyroxine 100 mcg PAST MEDICAL HISTORY Diagnosis Date Acquired hypothyroidism 11/03/2015 HTN (hypertension) 11/03/2015 Hyperlipidemia, unspecified 11/03/2015 Impingement syndrome of left shoulder 02/17/2016 Type 2 diabetes mellitus with diabetic retinopathy (HCC) 11/03/2015 diagnosed 1994 PAST SURGICAL HISTORY Procedure Laterality Date COLONOSCOPY FLX DX W/COLLJ SPEC WHEN PFRMD 02/14/2018 Colonoscopy - normal colon-10 year follow-up EYLEA (AFLIBERCEPT) 2MG INTRAVITREAL INJECTION OD (RIGHT EYE) Right last 02-27-2020 EYLEA (AFLIBERCEPT) 2MG INTRAVITREAL INJECTION OS (LEFT EYE) Left last 02-27-2020 INTRAVITREAL NJX PHARMACOLOGIC AGT SPX Left 06-09-2016 Intravitreal Injections Avastin VASECTOMY UNI/BI SPX W/POSTOP SEMEN EXAMS 04/22/16 FAMILY HISTORY Problem Relation Age of Onset Thyroid Mother Aneurysm Mother 72 massive hemorrhage No Ocular Disease Mother Diabetes Father No Ocular Disease Father Obesity Brother No Ocular Disease Other Social History Tobacco Use Smoking status: Never Smokeless tobacco: Never Vaping Use Vaping Use: Never used Substance Use Topics Alcohol use: No Drug use: No Current Outpatient Medications Medication Sig Dispense Refill semaglutide (OZEMPIC) 1 mg/dose (4 mg/3 mL) pen Inject 1 mg subcutaneously one time a week. 3 mL 0 levothyroxine (SYNTHROID) 125 mcg tablet Take 1 tablet by mouth once daily. Take on empty stomach. For Thyroid 90 tablet 3 OMNIPOD 5 G6 INTRO KIT, GEN 5, crtg INJECT 1 EACH SUBCUTANEOUSLY DIRECTED. 1 Each 0 insulin aspart, niacinamide, (FIASP U-100 INSULIN) 100 unit/mL soln Use 80 units in pump daily 80 mL 1 insulin aspart U-100 (NOVOLOG) 100 unit/mL Use up to 80 units in pump daily 80 mL 1 OMNIPOD 5 G6 PODS, GEN 5, crtg Inject 1 Each subcutaneously every 72 hours. (use one pod every 72 hours) 30 Each 3 Blood-Glucose Sensor (DEXCOM G6 SENSOR) antony Use with dexcom tractor expert for continuous glucose monitoring. Replace every 10 days. Dx:E10.65 10 Each 3 Blood-Glucose Transmitter (DEXCOM G6 TRANSMITTER) antony Use with dexcom sensors for continuous glucose monitoring. Replace every 3 months. E10.65 1 Each 3 lisinopril (ZESTRIL, PRINIVIL) 10 mg tablet Take 1 tablet by mouth once daily. 90 tablet 3 atorvastatin (LIPITOR) 20 mg tablet Take 1 tablet by mouth once daily. 90 tablet 3 Insulin [place], Disposable, (PEN NEEDLE) 30 gauge x 5/16 ndle Use with insulin up to 7 times daily 630 Each 1 Blood-Glucose Meter,Continuous (DEXCOM G6 IT ARCHITECT) misc Use to monitor blood sugars continuously with G6 sensors. E10.65 1 Each 0 glucagon (BAQSIMI) 3 mg/actuation nasal spray Use 1 [place] in the nose as needed. May repeat after 15 minutes using a new device if there is no response. (Patient not taking: Reported on 07/12/2023) 2 Each 1 blood sugar diagnostic (BLOOD GLUCOSE TEST) test strip Test blood sugar(s) 6 times daily. Dx: Type 2 DM - Uncontrolled E11.65 Insulin: Yes 600 Strip 3 Blood-Glucose Meter (ACCU-CHEK LUKAS PLUS METER) misc Use to test blood sugars 6 times a day. Insulin: Yes DX: E11.319 1 Each 0 Lancets lancets Test blood sugar(s) 6 times daily. Dx: E11.319 Insulin: Yes 600 Each 11 No current facility-administered medications for this visit. Allergies As of Date: 08/18/2023 (No Known Allergies) Fully Assessed 07/12/2023 REVIEW OF SYSTEMS: Answers submitted by the patient for this visit: Core Review of Systems (Submitted on 08/17/2023) Fever : No Night Sweats: No Recent Unintentional Weight Change: No Nasal Congestion: No Hearing Loss: No Vision Disturbance: Yes A Cough: No Difficulty Breathing?: No Chest Pain: No Irregular Heart Beat: No Leg Swelling: No Nausea: No Diarrhea: No Black Tarry Stools: No Difficulty Urinating?: No Awaken at Night More Than Once to Urinate?: Yes Joint Pain or Stiffness: No Muscle Aches: No Leg or Foot Discomfort at Night?: No A Rash: No Dizziness: No Headaches: No Brennan (more content not included)... [facility] 07-21-2023 Miscellaneous Notes Patient has been identified by name and date of : Yes, Patient phones for refill(s): Requested Prescriptions Pending Prescriptions Disp Refills levothyroxine (SYNTHROID) 125 mcg tablet 90 tablet 3 Sig: Take 1 tablet by mouth once daily. Take on empty stomach. For Thyroid Date of last office visit in primary care: 06/17/2023 Yearly: 09/16/2023 Last 2 Encounter Wt Readings: Date: Wt: 06/17/2023 99.8 kg (220 lb) 07/14/2022 97.5 kg (215 lb) Previous labs/tests for medication: Thyroid: TSH Date Value 10/11/2022 0.267 mIU/L 12/02/2021 1.060 uU/mL Please advise. Thank you. Bethany Coronel LPN documented in this encounter [facility] 07-21-2023 Note HNO ID: [id number] Author: Winifred Brooks MD Service: ? Author Type: Physician Type: Progress Notes Filed: 07/27/2023 2:42 PM Note Text: Reason for follow up: T1D May 18, 2023 Virtual visit I have communicated my name and active licensure. The patient's identity and physical location were verified at the time of this visit. Either the patient or their legal representative personal service has been informed of the risks and benefits of -- and alternatives to -- treatment through a remote evaluation and consents to proceed with the evaluation remotely. HISTORY OF PRESENT ILLNESS; - very physically active - omnipod 5 has been started! - placed on the leg, dexcom - discussed underfilling pod - discussed how to retrieve extra insulin - discussed basal rate setting not helpful in auto mode - discussed principle of delayed emptying - ozempic 1 mg 215 lb (starting Tuesday) - had a failure of the sensor once, another one Current Regimen Ozempic 1 weekly Omnipod 5 Metformin 1000 qHS Hypothyroid on levothyroxine 100 mcg PAST MEDICAL HISTORY Diagnosis Date Acquired hypothyroidism 11/03/2015 HTN (hypertension) 11/03/2015 Hyperlipidemia, unspecified 11/03/2015 Impingement syndrome of left shoulder 02/17/2016 Type 2 diabetes mellitus with diabetic retinopathy (HCC) 11/03/2015 diagnosed 1994 PAST SURGICAL HISTORY Procedure Laterality Date COLONOSCOPY FLX DX W/COLLJ SPEC WHEN PFRMD 02/14/2018 Colonoscopy - normal colon-10 year follow-up EYLEA (AFLIBERCEPT) 2MG INTRAVITREAL INJECTION OD (RIGHT EYE) Right last 02-27-2020 EYLEA (AFLIBERCEPT) 2MG INTRAVITREAL INJECTION OS (LEFT EYE) Left last 02-27-2020 INTRAVITREAL NJX PHARMACOLOGIC AGT SPX Left 06-09-2016 Intravitreal Injections Avastin VASECTOMY UNI/BI SPX W/POSTOP SEMEN EXAMS 04/22/16 FAMILY HISTORY Problem Relation Age of Onset Thyroid Mother Aneurysm Mother 72 massive hemorrhage No Ocular Disease Mother Diabetes Father No Ocular Disease Father Obesity Brother No Ocular Disease Other Social History Tobacco Use Smoking status: Never Smokeless tobacco: Never Vaping Use Vaping Use: Never used Substance Use Topics Alcohol use: No Drug use: No Current Outpatient Medications Medication Sig Dispense Refill semaglutide (OZEMPIC) 1 mg/dose (4 mg/3 mL) pen Inject 1 mg subcutaneously one time a week. 3 mL 0 OMNIPOD 5 G6 INTRO KIT, GEN 5, crtg INJECT 1 EACH SUBCUTANEOUSLY DIRECTED. 1 Each 0 insulin aspart, niacinamide, (FIASP U-100 INSULIN) 100 unit/mL soln Use 80 units in pump daily 80 mL 1 insulin aspart U-100 (NOVOLOG) 100 unit/mL Use up to 80 units in pump daily 80 mL 1 OMNIPOD 5 G6 PODS, GEN 5, crtg Inject 1 Each subcutaneously every 72 hours. (use one pod every 72 hours) 30 Each 3 Blood-Glucose Sensor (DEXCOM G6 SENSOR) antony Use with dexcom tractor expert for continuous glucose monitoring. Replace every 10 days. Dx:E10.65 10 Each 3 Blood-Glucose Transmitter (DEXCOM G6 TRANSMITTER) antony Use with dexcom sensors for continuous glucose monitoring. Replace every 3 months. E10.65 1 Each 3 lisinopril (ZESTRIL, PRINIVIL) 10 mg tablet Take 1 tablet by mouth once daily. 90 tablet 3 atorvastatin (LIPITOR) 20 mg tablet Take 1 tablet by mouth once daily. 90 tablet 3 Insulin [place], Disposable, (PEN NEEDLE) 30 gauge x 16 ndle Use with insulin up to 7 times daily 630 Each 1 levothyroxine (SYNTHROID) 125 mcg tablet Take 1 tablet by mouth once daily. Take on empty stomach. For Thyroid 90 tablet 3 Blood-Glucose Meter,Continuous (DEXCOM G6 IT ARCHITECT) [facility] Use to monitor blood sugars continuously with G6 sensors. E10.65 1 Each 0 glucagon (BAQSIMI) 3 mg/actuation nasal spray Use 1 [place] in the nose as needed. May repeat after 15 minutes using a new device if there is no response. (Patient not taking: Reported on 07/12/2023) 2 Each 1 blood sugar diagnostic (BLOOD GLUCOSE TEST) test strip Test blood sugar(s) 6 times daily. Dx: Type 2 DM - Uncontrolled E11.65 Insulin: Yes 600 Strip 3 Blood-Glucose Meter (ACCU-CHEK LUKAS PLUS METER) [facility] Use to test blood sugars 6 times a day. Insulin: Yes DX: E11.319 1 Each 0 Lancets lancets Test blood sugar(s) 6 times daily. Dx: E11.319 Insulin: Yes 600 Each 11 No current facility-administered medications for this visit. Allergies As of Date: 07/21/2023 (No Known Allergies) Fully Assessed 07/12/2023 REVIEW OF SYSTEMS: Answers submitted by the patient for this visit: Core Review of Systems (Submitted on 05/18/2023) Fever : No Night Sweats: No Recent Unintentional Weight Change: No Nasal Congestion: No Hearing Loss: No Vision Disturbance: No A Cough: No Difficulty Breathing?: No Chest Pain: No Irregular Heart Beat: No Leg Swelling: No Nausea: No Diarrhea: No Black Tarry Stools: No Difficulty Urinating?: No Awaken at Night More Than Once to Urinate?: No Joint Pain or Stiffness: No Muscle Aches: No Leg or Foot Discomfort at Night?: No A Rash: N (more content not included)... [facility] 07-21-2023 Note HNO ID: [id number] Author: Rick Armendariz MA Service: ? Author Type: Guest Services Agent Type: Procedures Filed: 07/21/2023 10:40 AM Note Text: [facility] 07-21-2023 History of Presen t illness Narrative Images from the original note were not included. Reason for follow up: T1D May 18, 2023 Virtual visit I have communicated my name and active licensure. The patient's identity and physical location were verified at the time of this visit. Either the patient or their legal representative personal service has been informed of the risks and benefits of -- and alternatives to -- treatment through a remote evaluation and consents to proceed with the evaluation remotely. HISTORY OF PRESENT ILLNESS; - very physically active - omnipod 5 has been started! - placed on the leg, dexcom - discussed underfilling pod - discussed how to retrieve extra insulin - discussed basal rate setting not helpful in auto mode - discussed principle of delayed emptying - ozempic 1 mg 215 lb (starting Tuesday) - had a failure of the sensor once, another one Current Regimen Ozempic 1 weekly Omnipod 5 Metformin 1000 qHS Hypothyroid on levothyroxine 100 mcg PAST MEDICAL HISTORY Diagnosis Date Acquired hypothyroidism 11/03/2015 HTN (hypertension) 11/03/2015 Hyperlipidemia, unspecified 11/03/2015 Impingement syndrome of left shoulder 02/17/2016 Type 2 diabetes mellitus with diabetic retinopathy (HCC) 11/03/2015 diagnosed 1994 PAST SURGICAL HISTORY Procedure Laterality Date COLONOSCOPY FLX DX W/COLLJ SPEC WHEN PFRMD 02/14/2018 Colonoscopy - normal colon-10 year follow-up EYLEA (AFLIBERCEPT) 2MG INTRAVITREAL INJECTION OD (RIGHT EYE) Right last 02-27-2020 EYLEA (AFLIBERCEPT) 2MG INTRAVITREAL INJECTION OS (LEFT EYE) Left last 02-27-2020 INTRAVITREAL NJX PHARMACOLOGIC AGT SPX Left 06-09-2016 Intravitreal Injections Avastin VASECTOMY UNI/BI SPX W/POSTOP SEMEN EXAMS 04/22/16 FAMILY HISTORY Problem Relation Age of Onset Thyroid Mother Aneurysm Mother 72 massive hemorrhage No Ocular Disease Mother Diabetes Father No Ocular Disease Father Obesity Brother No Ocular Disease Other Social History Tobacco Use Smoking status: Never Smokeless tobacco: Never Vaping Use Vaping Use: Never used Substance Use Topics Alcohol use: No Drug use: No Current Outpatient Medications Medication Sig Dispense Refill semaglutide (OZEMPIC) 1 mg/dose (4 mg/3 mL) pen Inject 1 mg subcutaneously one time a week. 3 mL 0 OMNIPOD 5 G6 INTRO KIT, GEN 5, crtg INJECT 1 EACH SUBCUTANEOUSLY DIRECTED. 1 Each 0 insulin aspart, niacinamide, (FIASP U-100 INSULIN) 100 unit/mL soln Use 80 units in pump daily 80 mL 1 insulin aspart U-100 (NOVOLOG) 100 unit/mL Use up to 80 units in pump daily 80 mL 1 OMNIPOD 5 G6 PODS, GEN 5, crtg Inject 1 Each subcutaneously every 72 hours. (use one pod every 72 hours) 30 Each 3 Blood-Glucose Sensor (DEXCOM G6 SENSOR) antony Use with dexcom tractor expert for continuous glucose monitoring. Replace every 10 days. Dx:E10.65 10 Each 3 Blood-Glucose Transmitter (DEXCOM G6 TRANSMITTER) antony Use with dexcom sensors for continuous glucose monitoring. Replace every 3 months. E10.65 1 Each 3 lisinopril (ZESTRIL, PRINIVIL) 10 mg tablet Take 1 tablet by mouth once daily. 90 tablet 3 atorvastatin (LIPITOR) 20 mg tablet Take 1 tablet by mouth once daily. 90 tablet 3 Insulin [place], Disposable, (PEN NEEDLE) 30 gauge x 5/16 ndle Use with insulin up to 7 times daily 630 Each 1 levothyroxine (SYNTHROID) 125 mcg tablet Take 1 tablet by mouth once daily. Take on empty stomach. For Thyroid 90 tablet 3 Blood-Glucose Meter,Continuous (DEXCOM G6 IT ARCHITECT) misc Use to monitor blood sugars continuously with G6 sensors. E10.65 1 Each 0 glucagon (BAQSIMI) 3 mg/actuation nasal spray Use 1 [place] in the nose as needed. May repeat after 15 minutes using a new device if there is no response. (Patient not taking: Reported on 07/12/2023) 2 Each 1 blood sugar diagnostic (BLOOD GLUCOSE TEST) test strip Test blood sugar(s) 6 times daily. Dx: Type 2 DM - Uncontrolled E11.65 Insulin: Yes 600 Strip 3 Blood-Glucose Meter (ACCU-CHEK LUKAS PLUS METER) [facility] Use to test blood sugars 6 times a day. Insulin: Yes DX: E11.319 1 Each 0 Lancets lancets Test blood sugar(s) 6 times daily. Dx: E11.319 Insulin: Yes 600 Each 11 No current facility-administered medications for this visit. Allergies As of Date: 07/21/2023 (No Known Allergies) Fully Assessed 07/12/2023 REVIEW OF SYSTEMS: Answers submitted by the patient for this visit: Core Review of Systems (Submitted on 05/18/2023) Fever : No Night Sweats: No Recent Unintentional Weight Change: No Nasal Congestion: No Hearing Loss: No Vision Disturbance: No A Cough: No Difficulty Breathing?: No Chest Pain: No Irregular Heart Beat: No Leg Swelling: No Nausea: No Diarrhea: No Black Tarry Stools: No Difficulty Urinating?: No Awaken at Night More Than Once to Urinate?: No Joint Pain or Stiffness: No Muscle Aches: No Leg or Foot Discomfort at Night?: No A Rash: No Dizziness: No Headaches: No Memory Loss: No Seizures: No PHYSICAL EXAM: There were no vitals taken for this visit. Compared with April 2023 and updated as appropriate General: NAD, AOx3 Skin: No acute lesions were noted Head: Normocephalic, Atraumatic Eyes: EOMI no sclera icterus Neck: no goiter, supple Pulm: resp effort is normal Extremities: no swelling, cyanosis Neuro: no tremor, hearing and speech normal DATA: Creatinine Date Value Ref Range Status 10/11/2022 1.05 0.73 - 1.22 mg/dL Final Hemoglobin A1C (%) Date Value 10/11/2022 7.8 09/08/2021 7.9 ) No components found for: URINEALBUMIN Cholesterol, Total (mg/dL) Date Value 10/11/2022 138 09/08/2021 134 HDL Cholesterol (mg/dL) Date Value 10/11/2022 53 09/08/2021 48 LDL Cholesterol (mg/dL) Date Value 10/11/2022 75 09/08/2021 75 Triglyceride (mg/dL) Date Value 10/11/2022 48 09/08/2021 54 Component Latest Ref Rng & Units 10/11/2022 Creatinine, Ur Random (UCRR) 20.0 - 300.0 mg/dL 169.2 Albumin, Urine Random mg/L <12.0 Albumin/Creat Ratio <30 mg/g <7 Hemoglobin A1C 4.3 - 5.6 % 7.8 (H) Estimated Average Glucose mg/dL 177 TSH 0.270 - 4.200 mIU/L 0.267 (L) Interpretation: - overall at goal IMPRESSION: 58yo w T1D since the age of 29 years. We have converted him to tresiba and also fiasp. Omnipod 5 is on and working beautifully He is losing weight with ozempic, about to start 1 mg dose RECOMMENDATIONS: 1. T1D uncontrolled w retinopathy - up to date on his health maintenance - changed his target 110 from 120 2. Hypothyroidism - TSH pending 3 month FU Winifred Brooks MD July 21, 2023 documented in this encounter [facility] 07-21-2023 Procedure note Procedure(s): EXTERNAL IT ARCHITECT, CGM SYS Images from the original note were not included. documented in this encounter [facility] 07-12-2023 Note HNO ID: [id number] Author: Emily Abrams MD Service: ? 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) - right eye: s/p Eylea - last was (02/22/23 - 10 weeks) - continued intraretinal fluid on OCT today - recommend repeat anti-VEGF today right eye - left eye: s/p Avastin x 1 (06/09/2016) AND s/p Eylea - last was (05/03/23 - 10 weeks) - continued intraretinal fluid OCT today - recommend repeat anti-VEGF today - OCT with worse fluid at the 11 week interval in both eyes previously - HOLD at 8-10 weeks for Eylea both eyes WITH dilated fundus exam both eyes - stopped prednisolone acetate 1% right eye without changes in Intraocular pressure over one month Any documentation recorded by the scribe accurately reflects the service I personally performed and the decisions made by myself, Emily Abrams MD. I have confirmed and edited as necessary the relevant ophthalmic history, ROS, and the neuro exam findings as obtained by others. I have seen and examined Micha Mederos. I have discussed the case and the management of this patient's care with the Resident/Fellow, if applicable. I also have reviewed and agree with the assessment and plan as stated above and agree with all of its relevant components. 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) - right eye: s/p Eylea - last was (02/22/23 - 10 weeks) - continued intraretinal fluid on OCT today - recommend repeat anti-VEGF today right eye - left eye: s/p Avastin x 1 (06/09/2016) & s/p Eylea - last was (05/03/23 - 10 weeks) - continued intraretinal fluid OCT today - recommend repeat anti-VEGF today - OCT with worse fluid at the 11 week interval in both eyes previously - HOLD at 8-10 weeks for Eylea both eyes WITH dilated fundus exam both eyes - stopped prednisolone acetate 1% right eye without changes in Intraocular pressure over one month Any documentation recorded by the scribe accurately reflects the service I personally performed and the decisions made by myself, Emily Abrams MD. I have confirmed and edited as necessary the relevant ophthalmic history, ROS, and the neuro exam findings as obtained by others. I have seen and examined Micha Mederos. I have discussed the case and the management of this patient's care with the Resident/Fellow, if applicable. I also have reviewed and agree with the assessment and plan as stated above and agree with all of its relevant components. documented in this encounter [facility] 06-23-2023 Miscellaneous Notes Requester: Pharmacy Patients last Endocrinology visit occurred 05/18/23. Follow-up evaluation has been established Upcoming Endocrinology Appointments - Next 365 Days Visit Type Date Time Department VIDEO SPEC DIRECT SCHED 07/21/2023 9:40 AM ENDO MAIN VIDEO SPEC EST 08/18/2023 11:30 AM ENDO MAIN . Requested Prescriptions Pending Prescriptions Disp Refills OMNIPOD 5 G6 INTRO KIT, GEN 5, crtg [Pharmacy Med Name: OMNIPOD 5 G6 INTRO KIT (GEN 5)] 1 Each 0 Sig: INJECT 1 EACH SUBCUTANEOUSLY DIRECTED. If patient is due for an appointment please route to provider for refill consideration and also to the endo scheduling pool. PSS NOTE: Patient needs scheduled appointment No documented in this encounter [facility] 06-22-2023 Miscellaneous Notes Error. documented in this encounter [facility] 06-20-2023 Miscellaneous Notes Insulin Pump Post-Training Follow Up Initially attempted f/u on 05/18 Pt started on Omnipod 5 pump on June 15, 2023 Pt states they have successfully changed infusion set: yes Current pump settings verified via online portal or discussion with patient: yes Patient reports hypoglycemia under 70 mg/dL in the last 3 days: yes, briefly last night, feels he may have miscounted carbs slightly, easily returned to normal range Patient reports hyperglycemia over 250 mg/dL in the last 3 days: yes, in setting of not having bolused before meal Patient concerns: had to change a pod early due to pain and discomfort at the site of insertion, reported it was hard at that site when he removed it and remains tender a few days post, encouraged him to f/u with pcp if he feels it's infected or more than a hematoma Other issues: none at this time No modifications at this time, patient still adapting to the new method of giving insulin, he reports some foods having a delayed raise in sugars that accounts for his not having pre-bolused for meals. documented in this encounter [facility] 06-17-2023 Note HNO ID: [id number] Author: Rafael Crow MD Service: ? Author Type: Physician Type: Progress Notes Filed: 06/17/2023 10:38 AM Note Text: This note was created using TalkPluster. Subjective Micha Mederos is a 57 year old male. He was doing well on the Omnipod. His glucose readings were coming down. He exercised regularly. He was interested in screening for coronary artery disease. He had friends who exercised regularly like himself who ended up having a bypass. Review of Systems Constitutional: Negative for activity change and unexpected weight change. Respiratory: Negative for shortness of breath. Cardiovascular: Negative for chest pain, palpitations and leg swelling. Neurological: Negative for dizziness and light-headedness. 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 semaglutide (OZEMPIC) 0.25 mg or 0.5 mg (2 mg/3 mL) pen Inject 0.25 mg subcutaneously one time a week. OMNIPOD 5 G6 PODS, GEN 5, crtg Inject 1 Each subcutaneously every 72 hours. (use one pod every 72 hours) Blood-Glucose Sensor (DEXCOM G6 SENSOR) antony Use with dexcom tractor expert for continuous glucose monitoring. Replace every 10 days. Dx:E10.65 Blood-Glucose Transmitter (DEXCOM G6 TRANSMITTER) antony Use with dexcom sensors for continuous glucose monitoring. Replace every 3 months. E10.65 lisinopril (ZESTRIL, PRINIVIL) 10 mg tablet Take 1 tablet by mouth once daily. atorvastatin (LIPITOR) 20 mg tablet Take 1 tablet by mouth once daily. Insulin [place], Disposable, (PEN NEEDLE) 30 gauge x 5/16 ndle Use with insulin up to 7 times daily insulin degludec (TRESIBA FLEXTOUCH U-100) 100 unit/mL (3 mL) injection pen Inject 20 Units subcutaneously daily at bedtime. (Patient not taking: Reported on 06/17/2023) insulin aspart, niacinamide, (FIASP FLEXTOUCH U-100 INSULIN) 100 unit/mL (3 mL) pen USE CARB RATIO 1:7 AND SENSITIVITY 1:25 TARGET 120 MG/DL, MAX DOSE 45 UNITS levothyroxine (SYNTHROID) 125 mcg tablet Take 1 tablet by mouth once daily. Take on empty stomach. For Thyroid Blood-Glucose Meter,Continuous (DEXCOM G6 IT ARCHITECT) misc Use to monitor blood sugars continuously with G6 sensors. E10.65 glucagon (BAQSIMI) 3 mg/actuation nasal spray Use 1 [place] in the nose as needed. May repeat after 15 minutes using a new device if there is no response. blood sugar diagnostic (BLOOD GLUCOSE TEST) test strip Test blood sugar(s) 6 times daily. Dx: Type 2 DM - Uncontrolled E11.65 Insulin: Yes Blood-Glucose Meter (ACCU-CHEK LUKAS PLUS METER) misc Use to test blood sugars 6 times a day. Insulin: Yes DX: E11.319 Lancets lancets Test blood sugar(s) 6 times daily. Dx: E11.319 Insulin: Yes No current facility-administered medications for this visit. Objective BP 118/82 Pulse 72 Resp 18 Wt 99.8 kg (220 lb) BMI 31.57 kg/m? Physical Exam Constitutional: Appearance: Normal appearance. Cardiovascular: Rate and Rhythm: Normal rate and regular rhythm. Heart sounds: No murmur heard. No gallop. Pulmonary: Breath sounds: Normal breath sounds. Musculoskeletal: Right lower leg: No edema. Left lower leg: No edema. Neurological: Mental Status: He is alert. Feet:Shoes and socks removed, No deformities, ulcers, calluses, normal distal pulses, and sensitive to 10 gm monofilament Depression Screening 01/05/2018 07/14/2022 06/17/2023 PHQ-2 Score 0 0 0 Depression screening tool completed and reviewed. Based on score and interview, patient is not at risk for depression. Screening tool discussed with patient, and I recommended no further intervention at this time. Assessment and Plan 1. Primary hypertension - ICD9: 401.9, ICD10: I10 (primary diagnosis) - Controlled - Continue current medications 2. Hyperlipidemia, unspecified hyperlipidemia type - ICD9: 272.4, ICD10: E78.5 - Control undetermined, due for labs - Continue current medications - LIPID PANEL BASIC 3. Acquired hypothyroidism - ICD9: 244.9, ICD10: E03.9 - Instructed patient on importance of taking on an empty stomach either first thing in the morning or at bedtime. - continue current dose of Synthroid - TSH BLD 4. Type 1 diabetes mellitus with severe nonproliferative re (more content not included)... [facility] 06-17-2023 History of Presen t illness Narrative This note was created using Jodange. Subjective Micha Mederos is a 57 year old male. He was doing well on the Omnipod. His glucose readings were coming down. He exercised regularly. He was interested in screening for coronary artery disease. He had friends who exercised regularly like himself who ended up having a bypass. Review of Systems Constitutional: Negative for activity change and unexpected weight change. Respiratory: Negative for shortness of breath. Cardiovascular: Negative for chest pain, palpitations and leg swelling. Neurological: Negative for dizziness and light-headedness. 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 semaglutide (OZEMPIC) 0.25 mg or 0.5 mg (2 mg/3 mL) pen Inject 0.25 mg subcutaneously one time a week. OMNIPOD 5 G6 PODS, GEN 5, crtg Inject 1 Each subcutaneously every 72 hours. (use one pod every 72 hours) Blood-Glucose Sensor (DEXCOM G6 SENSOR) antony Use with dexcom tractor expert for continuous glucose monitoring. Replace every 10 days. Dx:E10.65 Blood-Glucose Transmitter (DEXCOM G6 TRANSMITTER) antony Use with dexcom sensors for continuous glucose monitoring. Replace every 3 months. E10.65 lisinopril (ZESTRIL, PRINIVIL) 10 mg tablet Take 1 tablet by mouth once daily. atorvastatin (LIPITOR) 20 mg tablet Take 1 tablet by mouth once daily. Insulin [place], Disposable, (PEN NEEDLE) 30 gauge x 5/16 ndle Use with insulin up to 7 times daily insulin degludec (TRESIBA FLEXTOUCH U-100) 100 unit/mL (3 mL) injection pen Inject 20 Units subcutaneously daily at bedtime. (Patient not taking: Reported on 06/17/2023) insulin aspart, niacinamide, (FIASP FLEXTOUCH U-100 INSULIN) 100 unit/mL (3 mL) pen USE CARB RATIO 1:7 AND SENSITIVITY 1:25 TARGET 120 MG/DL, MAX DOSE 45 UNITS levothyroxine (SYNTHROID) 125 mcg tablet Take 1 tablet by mouth once daily. Take on empty stomach. For Thyroid Blood-Glucose Meter,Continuous (DEXCOM G6 IT ARCHITECT) misc Use to monitor blood sugars continuously with G6 sensors. E10.65 glucagon (BAQSIMI) 3 mg/actuation nasal spray Use 1 [place] in the nose as needed. May repeat after 15 minutes using a new device if there is no response. blood sugar diagnostic (BLOOD GLUCOSE TEST) test strip Test blood sugar(s) 6 times daily. Dx: Type 2 DM - Uncontrolled E11.65 Insulin: Yes Blood-Glucose Meter (ACCU-CHEK LUKAS PLUS METER) misc Use to test blood sugars 6 times a day. Insulin: Yes DX: E11.319 Lancets lancets Test blood sugar(s) 6 times daily. Dx: E11.319 Insulin: Yes No current facility-administered medications for this visit. Objective BP 118/82 Pulse 72 Resp 18 Wt 99.8 kg (220 lb) BMI 31.57 kg/m Physical Exam Constitutional: Appearance: Normal appearance. Cardiovascular: Rate and Rhythm: Normal rate and regular rhythm. Heart sounds: No murmur heard. No gallop. Pulmonary: Breath sounds: Normal breath sounds. Musculoskeletal: Right lower leg: No edema. Left lower leg: No edema. Neurological: Mental Status: He is alert. Feet:Shoes and socks removed, No deformities, ulcers, calluses, normal distal pulses, and sensitive to 10 gm monofilament Depression Screening 01/05/2018 07/14/2022 06/17/2023 PHQ-2 Score 0 0 0 Depression screening tool completed and reviewed. Based on score and interview, patient is not at risk for depression. Screening tool discussed with patient, and I recommended no further intervention at this time. Assessment and Plan 1. Primary hypertension - ICD9: 401.9, ICD10: I10 (primary diagnosis) - Controlled - Continue current medications 2. Hyperlipidemia, unspecified hyperlipidemia type - ICD9: 272.4, ICD10: E78.5 - Control undetermined, due for labs - Continue current medications - LIPID PANEL BASIC 3. Acquired hypothyroidism - ICD9: 244.9, ICD10: E03.9 - Instructed patient on importance of taking on an empty stomach either first thing in the morning or at bedtime. - continue current dose of Synthroid - TSH BLD 4. 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 Rafael Crow MD documented in this encounter [facility] 06-15-2023 Note HNO ID: [id number] Author: Fadi Lambert RN Service: ? Author Type: Registered Nurse Type: Progress Notes Filed: 06/15/2023 4:05 PM Note Text: Type of visit: In person individual Patient started today on Omnipod 5 insulin pump. Type of training:new to pump If upgrade, patient was previously on the following pump:patient is new to pump Pump programming done today by: patient with educator supervision Insulin information: Last long-acting insulin type, dose, and time: 20 units last evening between 9pm-10pm Temp basal rate set today:Activity Mode engaged until 9:38 tonight Rapid-acting insulin loaded into pump today: Novolog See phone encounter dated 06/13 for pump settings approved by provider and programmed into pump today. Pre-pump training and pump safety information: Patient can demonstrate correct use of a carb ratio:Yes Patient Verbalizes rules regarding when to change infusion set due to hyperglycemia: Yes Patient verbalizes importance of carrying a pump emergency kit:Yes Patient verbalizes back-up plan for pump failure:Yes Handouts provided: Follow-up plan for glucose management given to patient: Plan to follow up by phone Follow-up plan for education: Follow-up training needed:no follow-up training needed This is a non-billable encounter through [employer] but will be billed to the following pump company: [employer]. This visit note will be communicated to the healthcare provider via access to shared medical record. I spent 75 minutes with this patient today. Fadi Lambert RN [facility] 06-13-2023 Miscellaneous Notes This patient has received or will receive an insulin pump. PLEASE RESPOND TO THIS PHONE ENCOUNTER TO CONFIRM THE FOLLOWIN. That the suggested insulin pump start doses below are approved (or make changes as needed). 2. That you authorize the Diabetes Educators to do pump adjustments per the instructions listed after the rates (duration of educator providing adjustments: up to 2 weeks for upgrades, up to 4 weeks for new-to-pump). Helpful reminders to provider: 1. Order vials of insulin (type below) to be used in pump and update quantity per TDD below. 2. Update basal insulin in med list with instructions to be used prn when pump is not functional. 3. Add Insulin Pump Status to problem list. Details: Scheduled insulin pump training date:June 15 Pump brand and model being started:Omnipod 5 Type of training:new to pump Type/brand of insulin to be used in pump:Novolog Estimated total daily dose (TDD): 85 units Suggested insulin pump start doses: Basal rate (units/hour): 12:00am, 0.6 20 units per day * 0.75 safety factor = 15 units per day / 24 hours per day = approximately 0.6 Carb ratio (carb grams covered by 1 unit of insulin): 12:00am, 7 Current ratio Insulin sensitivity factor (mg/dL of blood glucose covered by 1 unit of insulin): 12:00am, 25 Current ratio Blood glucose targets (mg/dL): 12:00am, 120 Correct above [Omnipod pumps only] (mg/dL): 12:00am, 120 Active insulin time (hours): 4 Insulin pump adjustment instructions for the clinical informatics educator: Basal rate adjustments: If the glucose readings during a fasting state (no food or bolus during testing period or in the 4 hours prior) increase by 30mg/dl during the time segment being tested, then increase the basal rate for that segment by 10%. If the glucose readings during a fasting state (no food or bolus during testing period or in the 4 hours prior) decrease by 30mg/dl during the time segment being tested, then decrease the basal rate for that segment by 10%. Nzzxcmn-gf-dwkf ratio (ICR) adjustments: If the 2-hour postprandial glucose level is >60mg/dl above the pre-meal glucose level (no correction dose at pre-meal), increase the ICR for that meal by 1 gram/unit (for example: an ICR of 1:15 would change to 1:14). If the 2-hour postprandial glucose level is <30mg/dl above the pre-meal glucose level (no correction dose at pre-meal), decrease the ICR for that meal by 2 grams/unit (for example: an ICR of 1:15 would change to 1:17). Insulin sensitivity factor (ISF) adjustments: If the 4-hour post-correction glucose level is above the pre-meal target range (no prandial dose given or food eaten with or after correction dose), increase the ISF used during that time of day by 10% (for example: an ISF of 1:50 would change to 1:45). If the 4-hour post-correction glucose level is below the pre-meal target range (no prandial dose given or food eaten with or after correction dose), decrease the ISF used during that time of day by 20% (for example: an ISF of 1:50 would change to 1:60). BG targets for adjustments are as follows unless otherwise specified: Fasting/pre-meal: 70-130 1-2 hour Post-meal: 100-180 Bedtime: 100-150 documented in this encounter [facility] 06-06-2023 Miscellaneous Notes Spoke with patient and he did not have G6 transmitters. Will ask [facility]. He has finally gotten his training scheduled as well, Winifred Brooks MD June 06, 2023 documented in this encounter [facility] 05-25-2023 Miscellaneous Notes Faxed chart notes to [facility] at [phone] with cover sheet provided. Transmitted successfully. Zainab Jun Tankroom Worker [facility], F20 documented in this encounter [facility] 05-25-2023 Miscellaneous Notes Images from the original note were not included. OMNIPOD 5 G6 INTRO KIT, GEN 5, crtg has been approved Notified patient through [facility] Kurt Prior Mash Tub Cooker Operator [facility] [place] Initiated PA for OMNIPOD 5 G6 INTRO KIT, GEN 5, crtg through [facility] via [employer] Chart notes attached Questions completed Waiting for determination Kurt Prior Mash Tub Cooker Operator [employer] [employer] [place] documented in this encounter [facility] 05-23-2023 Miscellaneous Notes Rx need a prior Auth. Please advise Pharmacy calls in requesting the following refill(s): Requested Prescriptions Pending Prescriptions Disp Refills OMNIPOD 5 G6 INTRO KIT, GEN 5, crtg [Pharmacy Med Name: OMNIPOD 5 G6 INTRO KIT (GEN 5)] 0 Sig: INJECT 1 EACH SUBCUTANEOUSLY DIRECTED. documented in this encounter [facility] 05-19-2023 Miscellaneous Notes Requested Prescriptions Pending Prescriptions Disp Refills OMNIPOD 5 G6 INTRO KIT, GEN 5, crtg [Pharmacy Med Name: OMNIPOD 5 G6 INTRO KIT (GEN 5)] 1 Each 0 Sig: INJECT 1 EACH SUBCUTANEOUSLY DIRECTED. documented in this encounter [facility] 05-18-2023 Note HNO ID: [id number] Author: Winifred Brooks MD Service: ? Author Type: Physician Type: Progress Notes Filed: 05/18/2023 5:05 PM Note Text: Reason for follow up: T1D May 18, 2023 Virtual visit I have communicated my name and active licensure. The patient's identity and physical location were verified at the time of this visit. Either the patient or their legal representative personal service has been informed of the risks and benefits of -- and alternatives to -- treatment through a remote evaluation and consents to proceed with the evaluation remotely. HISTORY OF PRESENT ILLNESS; - don't really eat breakfast, fast until 1130-12 - salad or half of sandwich 8-10 units - very physically active - dinner is the issue - not goo at taking a shot before - 10-15 units for dinner depending on intake - not really carb counting, got worse at this - really problematic with eating out - doing injections in leg Current Regimen fiasp carb counting 1:10 carb ratio and 1:25 sensitivity tresiba 20 units Metformin 1000 qHS Hypothyroid on levothyroxine 100 mcg PAST MEDICAL HISTORY Diagnosis Date Acquired hypothyroidism 11/03/2015 HTN (hypertension) 11/03/2015 Hyperlipidemia, unspecified 11/03/2015 Impingement syndrome of left shoulder 02/17/2016 Type 2 diabetes mellitus with diabetic retinopathy (HCC) 11/03/2015 diagnosed 1994 PAST SURGICAL HISTORY Procedure Laterality Date COLONOSCOPY FLX DX W/COLLJ SPEC WHEN PFRMD 02/14/2018 Colonoscopy - normal colon-10 year follow-up EYLEA (AFLIBERCEPT) 2MG INTRAVITREAL INJECTION OD (RIGHT EYE) Right last 02-27-2020 EYLEA (AFLIBERCEPT) 2MG INTRAVITREAL INJECTION OS (LEFT EYE) Left last 02-27-2020 INTRAVITREAL NJX PHARMACOLOGIC AGT SPX Left 06-09-2016 Intravitreal Injections Avastin VASECTOMY UNI/BI SPX W/POSTOP SEMEN EXAMS 04/22/16 FAMILY HISTORY Problem Relation Age of Onset Thyroid Mother Aneurysm Mother 72 massive hemorrhage No Ocular Disease Mother Diabetes Father No Ocular Disease Father Obesity Brother No Ocular Disease Other Social History Tobacco Use Smoking status: Never Smokeless tobacco: Never Vaping Use Vaping Use: Never used Substance Use Topics Alcohol use: No Drug use: No Current Outpatient Medications Medication Sig Dispense Refill semaglutide (OZEMPIC) 0.25 mg or 0.5 mg (2 mg/3 mL) pen Inject 0.25 mg subcutaneously one time a week. 3 mL 1 OMNIPOD 5 G6 INTRO KIT, GEN 5, crtg Inject 1 Each subcutaneously as directed. 1 Each 0 OMNIPOD 5 G6 PODS, GEN 5, crtg Inject 1 Each subcutaneously every 72 hours. (use one pod every 72 hours) 30 Each 3 Blood-Glucose Sensor (DEXCOM G6 SENSOR) antony Use with dexcom tractor expert for continuous glucose monitoring. Replace every 10 days. Dx:E10.65 10 Each 3 Blood-Glucose Transmitter (DEXCOM G6 TRANSMITTER) antony Use with dexcom sensors for continuous glucose monitoring. Replace every 3 months. E10.65 1 Each 3 lisinopril (ZESTRIL, PRINIVIL) 10 mg tablet Take 1 tablet by mouth once daily. 90 tablet 3 atorvastatin (LIPITOR) 20 mg tablet Take 1 tablet by mouth once daily. 90 tablet 3 Insulin [place], Disposable, (PEN NEEDLE) 30 gauge x 5/16 ndle Use with insulin up to 7 times daily 630 Each 1 insulin degludec (TRESIBA FLEXTOUCH U-100) 100 unit/mL (3 mL) injection pen Inject 20 Units subcutaneously daily at bedtime. 10 Each 3 insulin aspart, niacinamide, (FIASP FLEXTOUCH U-100 INSULIN) 100 unit/mL (3 mL) pen USE CARB RATIO 1:7 AND SENSITIVITY 1:25 TARGET 120 MG/DL, MAX DOSE 45 UNITS 15 Each 3 levothyroxine (SYNTHROID) 125 mcg tablet Take 1 tablet by mouth once daily. Take on empty stomach. For Thyroid 90 tablet 3 Blood-Glucose Meter,Continuous (DEXCOM G6 IT ARCHITECT) misc Use to monitor blood sugars continuously with G6 sensors. E10.65 1 Each 0 glucagon (BAQSIMI) 3 mg/actuation nasal spray Use 1 [place] in the nose as needed. May repeat after 15 minutes using a new device if there is no response. 2 Each 1 blood sugar diagnostic (BLOOD GLUCOSE TEST) test strip Test blood sugar(s) 6 times daily. Dx: Type 2 DM - Uncontrolled E11.65 Insulin: Yes 600 Strip 3 Blood-Glucose Meter (ACCU-CHEK LUKAS PLUS METER) misc Use to test blood sugars 6 times a day. Insulin: Yes DX: E11.319 1 Each 0 Lancets lancets Test blood sugar(s) 6 times daily. Dx: E11.319 Insulin: Yes 600 Each 11 No current facility-administered medications for this visit. Allergies As of Date: 05/18/2023 (No Known Allergies) Fully Assessed 05/03/2023 REVIEW OF SYSTEMS: Answers submitted by the patient for this visit: Core Review of Systems (Submitted on 05/18/2023) Fever : No Night Sweats: No Recent Unintentional Weight Change: No Nasal Congestion: No Hearing Loss: No Vision Disturbance: No A Cough: No Difficulty Breathing?: No Chest Pain: No Irregular Heart Beat: No Leg Swelling: No Nausea: No Diarrhea: No Black Tarry Stools: No Difficulty Urinating?: No Awaken at Night More Than Once (more content not included)... [facility] 05-18-2023 History of Presen t illness Narrative Images from the original note were not included. Reason for follow up: T1D May 18, 2023 Virtual visit I have communicated my name and active licensure. The patient's identity and physical location were verified at the time of this visit. Either the patient or their legal representative personal service has been informed of the risks and benefits of -- and alternatives to -- treatment through a remote evaluation and consents to proceed with the evaluation remotely. HISTORY OF PRESENT ILLNESS; - don't really eat breakfast, fast until 1130-12 - salad or half of sandwich 8-10 units - very physically active - dinner is the issue - not goo at taking a shot before - 10-15 units for dinner depending on intake - not really carb counting, got worse at this - really problematic with eating out - doing injections in leg Current Regimen fiasp carb counting 1:10 carb ratio and 1:25 sensitivity tresiba 20 units Metformin 1000 qHS Hypothyroid on levothyroxine 100 mcg PAST MEDICAL HISTORY Diagnosis Date Acquired hypothyroidism 11/03/2015 HTN (hypertension) 11/03/2015 Hyperlipidemia, unspecified 11/03/2015 Impingement syndrome of left shoulder 02/17/2016 Type 2 diabetes mellitus with diabetic retinopathy (HCC) 11/03/2015 diagnosed 1994 PAST SURGICAL HISTORY Procedure Laterality Date COLONOSCOPY FLX DX W/COLLJ SPEC WHEN PFRMD 02/14/2018 Colonoscopy - normal colon-10 year follow-up EYLEA (AFLIBERCEPT) 2MG INTRAVITREAL INJECTION OD (RIGHT EYE) Right last 02-27-2020 EYLEA (AFLIBERCEPT) 2MG INTRAVITREAL INJECTION OS (LEFT EYE) Left last 02-27-2020 INTRAVITREAL NJX PHARMACOLOGIC AGT SPX Left 06-09-2016 Intravitreal Injections Avastin VASECTOMY UNI/BI SPX W/POSTOP SEMEN EXAMS 04/22/16 FAMILY HISTORY Problem Relation Age of Onset Thyroid Mother Aneurysm Mother 72 massive hemorrhage No Ocular Disease Mother Diabetes Father No Ocular Disease Father Obesity Brother No Ocular Disease Other Social History Tobacco Use Smoking status: Never Smokeless tobacco: Never Vaping Use Vaping Use: Never used Substance Use Topics Alcohol use: No Drug use: No Current Outpatient Medications Medication Sig Dispense Refill semaglutide (OZEMPIC) 0.25 mg or 0.5 mg (2 mg/3 mL) pen Inject 0.25 mg subcutaneously one time a week. 3 mL 1 OMNIPOD 5 G6 INTRO KIT, GEN 5, crtg Inject 1 Each subcutaneously as directed. 1 Each 0 OMNIPOD 5 G6 PODS, GEN 5, crtg Inject 1 Each subcutaneously every 72 hours. (use one pod every 72 hours) 30 Each 3 Blood-Glucose Sensor (DEXCOM G6 SENSOR) antony Use with dexcom tractor expert for continuous glucose monitoring. Replace every 10 days. Dx:E10.65 10 Each 3 Blood-Glucose Transmitter (DEXCOM G6 TRANSMITTER) antony Use with dexcom sensors for continuous glucose monitoring. Replace every 3 months. E10.65 1 Each 3 lisinopril (ZESTRIL, PRINIVIL) 10 mg tablet Take 1 tablet by mouth once daily. 90 tablet 3 atorvastatin (LIPITOR) 20 mg tablet Take 1 tablet by mouth once daily. 90 tablet 3 Insulin [place], Disposable, (PEN NEEDLE) 30 gauge x 5/16 ndle Use with insulin up to 7 times daily 630 Each 1 insulin degludec (TRESIBA FLEXTOUCH U-100) 100 unit/mL (3 mL) injection pen Inject 20 Units subcutaneously daily at bedtime. 10 Each 3 insulin aspart, niacinamide, (FIASP FLEXTOUCH U-100 INSULIN) 100 unit/mL (3 mL) pen USE CARB RATIO 1:7 AND SENSITIVITY 1:25 TARGET 120 MG/DL, MAX DOSE 45 UNITS 15 Each 3 levothyroxine (SYNTHROID) 125 mcg tablet Take 1 tablet by mouth once daily. Take on empty stomach. For Thyroid 90 tablet 3 Blood-Glucose Meter,Continuous (DEXCOM G6 IT ARCHITECT) misc Use to monitor blood sugars continuously with G6 sensors. E10.65 1 Each 0 glucagon (BAQSIMI) 3 mg/actuation nasal spray Use 1 [place] in the nose as needed. May repeat after 15 minutes using a new device if there is no response. 2 Each 1 blood sugar diagnostic (BLOOD GLUCOSE TEST) test strip Test blood sugar(s) 6 times daily. Dx: Type 2 DM - Uncontrolled E11.65 Insulin: Yes 600 Strip 3 Blood-Glucose Meter (ACCU-CHEK LUKAS PLUS METER) misc Use to test blood sugars 6 times a day. Insulin: Yes DX: E11.319 1 Each 0 Lancets lancets Test blood sugar(s) 6 times daily. Dx: E11.319 Insulin: Yes 600 Each 11 No current facility-administered medications for this visit. Allergies As of Date: 05/18/2023 (No Known Allergies) Fully Assessed 05/03/2023 REVIEW OF SYSTEMS: Answers submitted by the patient for this visit: Core Review of Systems (Submitted on 05/18/2023) Fever : No Night Sweats: No Recent Unintentional Weight Change: No Nasal Congestion: No Hearing Loss: No Vision Disturbance: No A Cough: No Difficulty Breathing?: No Chest Pain: No Irregular Heart Beat: No Leg Swelling: No Nausea: No Diarrhea: No Black Tarry Stools: No Difficulty Urinating?: No Awaken at Night More Than Once to Urinate?: No Joint Pain or Stiffness: No Muscle Aches: No Leg or Foot Discomfort at Night?: No A Rash: No Dizziness: No Headaches: No Memory Loss: No Seizures: No PHYSICAL EXAM: There were no vitals taken for this visit. Compared with February 06, 2021 and updated as appropriate General: NAD, AOx3 Skin: No acute lesions were noted Head: Normocephalic, Atraumatic Eyes: EOMI no sclera icterus Neck: no goiter, supple Pulm: resp effort is normal Extremities: no swelling, cyanosis Neuro: no tremor, hearing and speech normal DATA: Creatinine Date Value Ref Range Status 10/11/2022 1.05 0.73 - 1.22 mg/dL Final Hemoglobin A1C (%) Date Value 10/11/2022 7.8 09/08/2021 7.9 ) No components found for: URINEALBUMIN Cholesterol, Total (mg/dL) Date Value 10/11/2022 138 09/08/2021 134 HDL Cholesterol (mg/dL) Date Value 10/11/2022 53 09/08/2021 48 LDL Cholesterol (mg/dL) Date Value 10/11/2022 75 09/08/2021 75 Triglyceride (mg/dL) Date Value 10/11/2022 48 09/08/2021 54 Component Latest Ref Rng & Units 10/11/2022 Creatinine, Ur Random (UCRR) 20.0 - 300.0 mg/dL 169.2 Albumin, Urine Random mg/L <12.0 Albumin/Creat Ratio <30 mg/g <7 Hemoglobin A1C 4.3 - 5.6 % 7.8 (H) Estimated Average Glucose mg/dL 177 TSH 0.270 - 4.200 mIU/L 0.267 (L) Interpretation: - some spikes after dinner and also overnight IMPRESSION: 57yo w T1D since the age of 29 years. We have converted him to tresiba and also fiasp. He feels like he is having to micromanage - we discussed the closed loop with Dexcom and omnipod 5 Would try and move the dinner to 3 hours before going to sleep Will need prepump training Will have rep reach out to him RECOMMENDATIONS: 1. T1D uncontrolled w retinopathy - up to date on his health maintenance - discussed need to try and better understand carb counting - ozempic for insulin resistance to try and help with post prandial highs 3 month FU 40 minute visit with >50% in counseling on different approaches Winifred Brooks MD May 18, 2023 documented in this encounter [facility] 05-03-2023 Note HNO ID: [id number] Author: Emily Abrams MD Service: ? 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) - right eye: s/p Eylea - last was (02/22/23 - 10 weeks) - continued intraretinal fluid on OCT today - recommend repeat anti-VEGF today right eye - left eye: s/p Avastin x 1 (06/09/2016) AND s/p Eylea - last was (02/22/23 - 10 weeks) - continued intraretinal fluid OCT today - recommend repeat anti-VEGF today - OCT with worse fluid at the 11 week interval in both eyes previously - HOLD at 8-10 weeks for Eylea both eyes - stopped prednisolone acetate 1% right eye without changes in Intraocular pressure over one month Any documentation recorded by the scribe accurately reflects the service I personally performed and the decisions made by myself, Emily Abrams MD. I have confirmed and edited as necessary the relevant ophthalmic history, ROS, and the neuro exam findings as obtained by others. I have seen and examined Micha Mederos. I have discussed the case and the management of this patient's care with the Resident/Fellow, if applicable. I also have reviewed and agree with the assessment and plan as stated above and agree with all of its relevant components. [facility] 03-30-2023 Miscellaneous Notes Faxed form to [email or web address] for Sensors. Successfully transmitted to [phone]. Lexi Jeffers Tankroom Worker II [facility] documented in this encounter [facility] 03-02-2023 Miscellaneous Notes Requester: Pharmacy Patients last Endocrinology visit occurred 02/04/23. Follow-up evaluation has been established 07/21/23. Requested Prescriptions Pending Prescriptions Disp Refills Blood-Glucose Sensor (DEXCOM G6 SENSOR) antony 10 Each 3 Sig: Use with dexcom tractor expert for continuous glucose monitoring. Replace every 10 days. Dx:E10.65 Blood-Glucose Transmitter (DEXCOM G6 TRANSMITTER) antony 1 Each 3 Sig: Use with dexcom sensors for continuous glucose monitoring. Replace every 3 months. E10.65 If patient is due for an appointment please route to provider for refill consideration and also to the endo scheduling pool. PSS NOTE: Patient needs scheduled appointment No documented in this encounter [facility] 02-22-2023 Note HNO ID: [id number] Author: Emily Abrams MD Service: ? 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) - right eye: s/p Eylea - last was (12/14/22 - 10 weeks) - improved intraretinal fluid on OCT today - recommend repeat anti-VEGF today right eye - left eye: s/p Avastin x 1 (06/09/2016) AND s/p Eylea - last was (12/14/22 - 10 weeks) - improved intraretinal fluid OCT today - recommend repeat anti-VEGF today - OCT with worse fluid at the 11 week interval in both eyes previously - HOLD at 8-10 weeks for Eylea both eyes - stopped prednisolone acetate 1% right eye without changes in Intraocular pressure over one month Any documentation recorded by the scribe accurately reflects the service I personally performed and the decisions made by myself, Emily Abrams MD. I have confirmed and edited as necessary the relevant ophthalmic history, ROS, and the neuro exam findings as obtained by others. I have seen and examined Micha Mederos. I have discussed the case and the management of this patient's care with the Resident/Fellow, if applicable. I also have reviewed and agree with the assessment and plan as stated above and agree with all of its relevant components. 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) - right eye: s/p Eylea - last was (12/14/22 - 10 weeks) - improved intraretinal fluid on OCT today - recommend repeat anti-VEGF today right eye - left eye: s/p Avastin x 1 (06/09/2016) & s/p Eylea - last was (12/14/22 - 10 weeks) - improved intraretinal fluid OCT today - recommend repeat anti-VEGF today - OCT with worse fluid at the 11 week interval in both eyes previously - HOLD at 8-10 weeks for Eylea both eyes - stopped prednisolone acetate 1% right eye without changes in Intraocular pressure over one month Any documentation recorded by the scribe accurately reflects the service I personally performed and the decisions made by myself, Emily Abrams MD. I have confirmed and edited as necessary the relevant ophthalmic history, ROS, and the neuro exam findings as obtained by others. I have seen and examined Micha Mederos. I have discussed the case and the management of this patient's care with the Resident/Fellow, if applicable. I also have reviewed and agree with the assessment and plan as stated above and agree with all of its relevant components. documented in this encounter [facility] 12-31-2022 Miscellaneous Notes Summary: Form DWO form received from [email or web address] for Supplies Form submitted to provider for review/signature*. Faxing to [phone]. Mile Reyes, Tankroom Worker [facility] documented in this encounter [facility] 12-31-2022 Miscellaneous Notes Summary: Rx refills Requester: Mail Order Patients last Endocrinology visit occurred 02/04/22. Follow-up evaluation has been established 01/13/23. Requested Prescriptions Pending Prescriptions Disp Refills Blood-Glucose Sensor (DEXCOM G6 SENSOR) antony 10 Each 3 Sig: Use with dexcom tractor expert for continuous glucose monitoring. Replace every 10 days. Dx:E10.65 Blood-Glucose Transmitter (DEXCOM G6 TRANSMITTER) antony 1 Each 3 Sig: Use with dexcom sensors for continuous glucose monitoring. Replace every 3 months. E10.65 If patient is due for an appointment please route to provider for refill consideration and also to the endo scheduling pool. PSS NOTE: Patient needs scheduled appointment No Mile Reyes, Tankroom Worker [facility] documented in this encounter [facility] 12-14-2022 Note HNO ID: [id number] Author: Emily Abrams MD Service: ? 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) - right eye: s/p Eylea - last was (10/05/22 - 10 weeks) - improved intraretinal fluid on OCT today - recommend repeat anti-VEGF today right eye - left eye: s/p Avastin x 1 (06/09/2016) AND s/p Eylea - last was (10/05/22 - 10 weeks) - improved intraretinal fluid OCT today - recommend repeat anti-VEGF today - OCT with worse fluid at the 11 week interval in both eyes previously - HOLD at 8-10 weeks for Eylea both eyes WITH dilated fundus exam both eyes - Cancel Vabysmo auth for now - stopped prednisolone acetate 1% right eye without changes in Intraocular pressure over one month Any documentation recorded by the scribe accurately reflects the service I personally performed and the decisions made by myself, Emily Abrams MD. I have confirmed and edited as necessary the relevant ophthalmic history, ROS, and the neuro exam findings as obtained by others. I have seen and examined Micha Nancehn. I have discussed the case and the management of this patient's care with the Resident/Fellow, if applicable. I also have reviewed and agree with the assessment and plan as stated above and agree with all of its relevant components. 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) - right eye: s/p Eylea - last was (10/05/22 - 10 weeks) - improved intraretinal fluid on OCT today - recommend repeat anti-VEGF today right eye - left eye: s/p Avastin x 1 (06/09/2016) & s/p Eylea - last was (10/05/22 - 10 weeks) - improved intraretinal fluid OCT today - recommend repeat anti-VEGF today - OCT with worse fluid at the 11 week interval in both eyes previously - HOLD at 8-10 weeks for Eylea both eyes WITH dilated fundus exam both eyes - Cancel Vabysmo auth for now - stopped prednisolone acetate 1% right eye without changes in Intraocular pressure over one month Any documentation recorded by the scribe accurately reflects the service I personally performed and the decisions made by myself, Emily Abrams MD. I have confirmed and edited as necessary the relevant ophthalmic history, ROS, and the neuro exam findings as obtained by others. I have seen and examined Micha Mederos. I have discussed the case and the management of this patient's care with the Resident/Fellow, if applicable. I also have reviewed and agree with the assessment and plan as stated above and agree with all of its relevant components. documented in this encounter [facility] 10-26-2022 Miscellaneous Notes Patient has been identified by name and date of : Yes Patient phones for refill(s): Requested Prescriptions Pending Prescriptions Disp Refills lisinopril (ZESTRIL, PRINIVIL) 10 mg tablet 90 tablet 3 Sig: Take 1 tablet by mouth once daily. atorvastatin (LIPITOR) 20 mg tablet 90 tablet 3 Sig: Take 1 tablet by mouth once daily. Date of last office visit in primary care: 07/14/2022 6 month follow-up: 01/14/2023 Last 2 Encounter Wt Readings: Date: Wt: 07/14/2022 97.5 kg (215 lb) 09/10/2021 99.8 kg (220 lb) Previous labs/tests for medication: Cholesterol: HDL Cholesterol (mg/dL) Date Value 10/11/2022 53 09/08/2021 48 LDL Cholesterol (mg/dL) Date Value 10/11/2022 75 09/08/2021 75 ALT (U/L) Date Value 10/11/2022 17 09/24/2020 19 Non HDL Cholesterol (mg/dL) Date Value 10/11/2022 85 09/08/2021 86 Blood Pressure: BUN (mg/dL) Date Value 10/11/2022 12 09/08/2021 13 Sodium (mmol/L) Date Value 10/11/2022 141 09/08/2021 140 Last 1 Encounter BP Readings: Date: BP: 07/14/2022 118/68 Please advise. Thank you. Bethany Coronel LPN documented in this encounter [facility] 10-21-2022 Miscellaneous Notes Patient has been identified by name and date of : Yes Patient phones for refill(s): Requested Prescriptions Pending Prescriptions Disp Refills Insulin [place], Disposable, (PEN NEEDLE) 30 gauge x 5/16 ndle 630 Each 1 Sig: Use with insulin up to 7 times daily Date of last office visit in primary care: [facility] 07/14/2022 Appointment scheduled 01/14/23 Last 2 Encounter Wt Readings: Date: Wt: 07/14/2022 97.5 kg (215 lb) 09/10/2021 99.8 kg (220 lb) Please advise. Thank you. ANI Long documented in this encounter [facility] 10-21-2022 Miscellaneous Notes Patient has been identified by name and date of : Yes Patient phones for refill(s): Requested Prescriptions Pending Prescriptions Disp Refills insulin degludec (TRESIBA FLEXTOUCH U-100) 100 unit/mL (3 mL) injection pen 10 Each 3 Sig: Inject 20 Units subcutaneously daily at bedtime. insulin aspart, niacinamide, (FIASP FLEXTOUCH U-100 INSULIN) 100 unit/mL (3 mL) pen 15 Each 3 Sig: USE CARB RATIO 1:7 AND SENSITIVITY 1:25 TARGET 120 MG/DL, MAX DOSE 45 UNITS Date of last office visit in primary care: [facility] 07/14/22 Appointment scheduled 01/14/2023 Last 2 Encounter Wt Readings: Date: Wt: 07/14/2022 97.5 kg (215 lb) 09/10/2021 99.8 kg (220 lb) Please advise. Thank you. ANI Long documented in this encounter [facility] 09-24-2022 Miscellaneous Notes Patient came in for lab work but labs . Asking if labs can be ordered again. Orders pended. Please advise. documented in this encounter [facility] 08-23-2022 Miscellaneous Notes Spoke with pt and information listed below given. Pt verbalizes understanding. Pt will walk in to have fasting blood work done. Imelda Price LPN Please call and remind patient to have labs done that were due in June Consuelo Kumar APRN.SHIRAZ Patient has been identified by name and date of : Yes Requested Prescriptions Pending Prescriptions Disp Refills insulin degludec (TRESIBA FLEXTOUCH U-100) 100 unit/mL (3 mL) injection pen 10 Each 3 Sig: Inject 20 Units subcutaneously daily at bedtime. insulin aspart, niacinamide, (FIASP FLEXTOUCH U-100 INSULIN) 100 unit/mL (3 mL) pen 15 Each 3 Sig: USE CARB RATIO 1:7 AND SENSITIVITY 1:25 TARGET 120 MG/DL, MAX DOSE 45 UNITS RX INSTRUCTIONS: Patient aware RX will be sent to pharmacy. No need to notify patient. Sita Rivera [employer] documented in this encounter [facility] 08-11-2022 Miscellaneous Notes Patient changed pharmacy. Patient has been identified by name and date of : Yes Patient phones for refill(s): Requested Prescriptions Pending Prescriptions Disp Refills levothyroxine (SYNTHROID) 125 mcg tablet 90 tablet 3 Sig: Take 1 tablet by mouth once daily. Take on empty stomach. For Thyroid Date of last office visit in primary care: 07/14/2022 6 month follow-up: 01/14/2022 Last 2 Encounter Wt Readings: Date: Wt: 07/14/2022 97.5 kg (215 lb) 09/10/2021 99.8 kg (220 lb) Previous labs/tests for medication: Thyroid: TSH (uU/mL) Date Value 12/02/2021 1.060 Please advise. Thank you. Bethany Coronel LPN Patient has been identified by name and date of : Yes Requested Prescriptions Pending Prescriptions Disp Refills levothyroxine (SYNTHROID) 125 mcg tablet 90 tablet 3 Sig: Take 1 tablet by mouth once daily. Take on empty stomach. For Thyroid RX INSTRUCTIONS: Patient aware RX will be sent to pharmacy. No need to notify patient. Svitlana Honeycutt documented in this encounter [facility] 07-14-2022 History of Presen t illness Narrative This note was created using [employer]idon[employer]. Subjective Micha Mederos is a 57 year old male here for follow up and medication refills. He followed with Dr. Mcconnell for endocrinology. His labs needed updating. He was maintaining his weight and diabetes was reportedly controlled. Exercise levels were maintained. Review of Systems Constitutional: Negative. Respiratory: Negative. Cardiovascular: Negative. Gastrointestinal: Negative. Neurological: Negative. 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 (Hcc) Type 1 Diabetes Mellitus With Severe Nonproliferative Retinopathy of Left Eye and Macular Edema (Hcc) Obesity, Class I, Bmi 30.0-34.9 (See Actual Bmi) Social History Tobacco Use Smoking status: Never Smokeless tobacco: Never Vaping Use Vaping Use: Never used Substance Use Topics Alcohol use: No Drug use: No Current Outpatient Medications Medication Sig insulin degludec (TRESIBA FLEXTOUCH U-100) 100 unit/mL (3 mL) injection pen Inject 20 Units subcutaneously daily at bedtime. insulin aspart, niacinamide, (FIASP FLEXTOUCH U-100 INSULIN) 100 unit/mL (3 mL) pen USE CARB RATIO 1:7 AND SENSITIVITY 1:25 TARGET 120 MG/DL, MAX DOSE 45 UNITS Blood-Glucose Meter,Continuous (DEXCOM G6 IT ARCHITECT) misc Use to monitor blood sugars continuously with G6 sensors. E10.65 Blood-Glucose Sensor (DEXCOM G6 SENSOR) antony Use with dexcom tractor expert for continuous glucose monitoring. Replace every 10 days. Dx:E10.65 Blood-Glucose Transmitter (DEXCOM G6 TRANSMITTER) antony Use with dexcom sensors for continuous glucose monitoring. Replace every 3 months. E10.65 levothyroxine (SYNTHROID) 125 mcg tablet Take 1 tablet by mouth once daily. Take on empty stomach. For Thyroid lisinopril (ZESTRIL, PRINIVIL) 10 mg tablet Take 1 tablet by mouth once daily. atorvastatin (LIPITOR) 20 mg tablet Take 1 tablet by mouth once daily. Insulin [place], Disposable, (PEN NEEDLE) 30 gauge x 5/16 ndle Use with insulin up to 7 times daily glucagon (BAQSIMI) 3 mg/actuation nasal spray Use 1 [place] in the nose as needed. May repeat after 15 minutes using a new device if there is no response. blood sugar diagnostic (BLOOD GLUCOSE TEST) test strip Test blood sugar(s) 6 times daily. Dx: Type 2 DM - Uncontrolled E11.65 Insulin: Yes metFORMIN ER (GLUCOPHAGE XR) 500 mg 24 hr tablet Take 2 tablets by mouth once daily. Blood-Glucose Meter (ACCU-CHEK LUKAS PLUS METER) misc Use to test blood sugars 6 times a day. Insulin: Yes DX: E11.319 Lancets lancets Test blood sugar(s) 6 times daily. Dx: E11.319 Insulin: Yes No current facility-administered medications for this visit. Objective BP 118/68 (BP Site: Right Arm, BP Position: Sitting, BP Cuff Size: Large Adult) Pulse 64 Temp 36.6 C (97.8 F) (Temporal) Resp 16 Wt 97.5 kg (215 lb) BMI 30.85 kg/m Physical Exam Constitutional: Appearance: Normal appearance. HENT: Head: Normocephalic. Eyes: General: No scleral icterus. Cardiovascular: Rate and Rhythm: Normal rate and regular rhythm. Heart sounds: No murmur heard. No gallop. Pulmonary: Breath sounds: Normal breath sounds. Musculoskeletal: Right lower leg: No edema. Left lower leg: No edema. Neurological: Mental Status: He is alert. Assessment and Plan 1. Type 1 diabetes mellitus with proliferative retinopathy, macular edema presence unspecified, unspecified laterality, unspecified proliferative retinopathy type (HCC) - ICD9: 250.51, 362.02, ICD10: E10.3599 (primary diagnosis) Refilled. He will go for labs next week. - METFORMIN ER 500 MG TABLET,EXTENDED RELEASE 24 HR - TRESIBA FLEXTOUCH U-100 INSULIN 100 UNIT/ML (3 ML) SUBCUTANEOUS PEN - FIASP FLEXTOUCH U-100 INSULIN 100 UNIT/ML (3 ML) SUBCUTANEOUS PEN - HGB A1C - ALBUMIN/CREAT RATIO RND UR - COMP METABOLIC PANEL 2. Acquired hypothyroidism - ICD9: 244.9, ICD10: E03.9 - continue current dose of Synthroid - TSH BLD 3. Hyperlipidemia, unspecified hyperlipidemia type - ICD9: 272.4, ICD10: E78.5 - to be determined upon return of lab results - Continue current medication. - LIPID PANEL BASIC 4. Primary hypertension - ICD9: 401.9, ICD10: I10 - good control - CBC 5. Need for COVID-19 vaccine - ICD9: V04.89, ICD10: Z23 - [employer] COVID-19 VACCINE, AGE 12+ YR ([place]INS TOP) Rafael Crow MD documented in this encounter [facility] 07-08-2022 Miscellaneous Notes Initiated PA for Dexcom G6 Sensor, Transmitter and Commodity Supervisor through [employer] via Epic Questions completed Waiting for determination documented in this encounter [facility] 05-26-2022 Miscellaneous Notes [facility]: 09/10/2021 flextouch Last refill: 01/14/2022 QTY: 15 Refills: 1 tresiba Last refill: 05/14/2022QTY: 15 Refills: 1 Patient has been identified by name and date of : Yes Pending Prescriptions Disp Refills TRESIBA FLEXTOUCH U-100 INSULIN 100 UNIT/ML (3 ML) SUBCUTANEOUS PEN 10 Pen 1 Sig: Inject 20 Units subcutaneously daily at bedtime. ELTON: No FIASP FLEXTOUCH U-100 INSULIN 100 UNIT/ML (3 ML) SUBCUTANEOUS PEN 15 Pen 1 Sig: USE CARB RATIO 1:7 AND SENSITIVITY 1:25 [facility] 120 MG/DL, MAX DOSE 45 UNITS ELTON: No RX INSTRUCTIONS: Patient aware RX will be sent to pharmacy. No need to notify patient. Note: change of phramacy , he has discontinued the account with [facility] so it has been deleted from his list. They were closed for three days and he could not get his insulin Sita Michael documented in this encounter [facility] 05-25-2022 Miscellaneous Notes Created separate refill request documented in this encounter [facility] 05-25-2022 Miscellaneous Notes Requester: Patient Patients last Endocrinology visit occurred 02/04/22. Follow-up evaluation has been established none. Pending Prescriptions Disp Refills DEXCOM G6 IT ARCHITECT MISC 1 Each 0 Sig: Use to monitor blood sugars continuously with G6 sensors. E10.65 ELTON: No DEXCOM G6 SENSOR DEVICE 10 Each 3 Sig: Use with dexcom tractor expert for continuous glucose monitoring. Replace every 10 days. Dx:E10.65 ELTON: No DEXCOM G6 TRANSMITTER DEVICE 1 Each 3 Sig: Use with dexcom sensors for continuous glucose monitoring. Replace every 3 months. E10.65 ELTON: No If patient is due for an appointment please route to provider for refill consideration and also to the endo scheduling pool. PSS NOTE: Patient needs scheduled appointment No documented in this encounter [facility] 05-12-2022 Miscellaneous Notes Patient has been identified by name and date of : Yes Pending Prescriptions Disp Refills TRESIBA FLEXTOUCH U-100 INSULIN 100 UNIT/ML (3 ML) SUBCUTANEOUS PEN 10 Pen 1 Sig: Inject 20 Units subcutaneously daily at bedtime. ELTON: No FIASP FLEXTOUCH U-100 INSULIN 100 UNIT/ML (3 ML) SUBCUTANEOUS PEN ELTON: No GORDON-09/10/21 Labs-09/08/21 NOV-06/07/22 RX INSTRUCTIONS: need 90 day supply for insurance to cover Patient aware RX will be sent to pharmacy. No need to notify patient. Sana Sherwood Pss documented in this encounter [facility] 04-04-2022 Miscellaneous Notes Addended by: RAFAEL CROW on: 04/04/2022 02:35 PM Modules accepted: Orders Schedule virtual visit tomorrow. Messaged to have Covid test in lab. Test ordered. Reason for call: Positive home Covid-19 Outcome: Recommendation to see PCP in the morning, also follow up with primary physician in the am. Patient verbally agrees and understands the recommendations Patient conferenced to appointment center Also discussed utilizing express care online for sooner appointment. Utilized [facility] Cov[facility] for recommendations Reason for Disposition HIGH RISK for severe COVID complications (e.g., weak immune system, age > 64 years, obesity with BMI > 25, , chronic lung disease or other chronic medical condition) (Exception: Already seen by PCP and no new or worsening symptoms.) Answer Assessment - Initial Assessment Questions 1. COVID-19 DIAGNOSIS: Positive on a rapid home test on Monday 04/02 2. COVID-19 EXPOSURE: Yes; spouse traveled to [place]; was then positive for Covid-19 3. ONSET: ; 04/01 4. WORST SYMPTOM: Sore throat 5. COUGH: Mild non productive cough; will produce sometimes. Intermittent 6. FEVER: \ States no current fever; did have a fever yesterday of 100 F orally. States he had chills; diaphoresis on night with associated hallucinations - denies any current fever or hallucinations. current is 98.6 F orally. 7. RESPIRATORY STATUS: Normal per patient 8. [id number] Better a little 9. HIGH RISK DISEASE: Diabetes 10. VACCINE: Vaccinated, yes Pfizer January and February 2021 11. BOOSTER: Has received booster wunderloop August 2021 12. : N/A 13. OTHER SYMPTOMS: Fatigue, sore throat, cough, runny nose 14. O2 SATURATION MONITOR: Does not have pulse oximetry at home. Protocols used: CORONAVIRUS (COVID-19) DIAGNOSED OR [id number] documented in this encounter [facility] 03-26-2022 Miscellaneous Notes Referral authorized patient scheduled. Patient can not schedule until new referral is authorized Placed referral will wait on it to be authorized. Patient aware Appt. For 05/18 @8:45am with for 8 week injection documented in this encounter [facility] 02-15-2022 Miscellaneous Notes Call made to patient to schedule follow up visit. No answer at this time. Detailed message left for patient to call our office back to schedule. Patient is to see Dr Mcconnell in one month virtually. Thank you Ori Weber Ma documented in this encounter [facility] documented as of this encounter (statuses as of 02/15/2022) [facility]-2017 History of Past illness Narrative* Problem Noted Date Resolved Date Acute pain of left shoulder 07/12/201712/22 Encounter for sterilization 03/09/201612/22 Impingement syndrome of left shoulder 02/17/2016 01/05/2018 Type 2 diabetes mellitus with diabetic retinopat hy 11/03/2015 09/10/2021 documented as of this encounter (statuses as of 03/26/2022) [facility] History of Past illness Narrative* Problem Noted Date Resolved Date Acute pain of left shoulder 07/12/201712/22 Encounter for sterilization 03/09/201612/22 Impingement syndrome of left shoulder 02/17/2016 01/05/2018 Type 2 diabetes mellitus with diabetic retinopat hy 11/03/2015 09/10/2021 documented as of this encounter (statuses as of 04/04/2022) [facility] History of Past illness Narrative* Problem Noted Date Resolved Date Acute pain of left shoulder 07/12/201712/22 Encounter for sterilization 03/09/201612/22 Impingement syndrome of left shoulder 02/17/2016 01/05/2018 Type 2 diabetes mellitus with diabetic retinopat hy 11/03/2015 09/10/2021 documented as of this encounter (statuses as of 05/11/2022) [facility] History of Past illness Narrative* Problem Noted Date Resolved Date Acute pain of left shoulder 07/12/201712/22 Encounter for sterilization 03/09/201612/22 Impingement syndrome of left shoulder 02/17/2016 01/05/2018 Type 2 diabetes mellitus with diabetic retinopat hy 11/03/2015 09/10/2021 documented as of this encounter (statuses as of 05/14/2022) [place] [id number] History of Past illness Narrative* Problem Noted Date Resolved Date Acute pain of left shoulder 07/12/201712/22 Encounter for sterilization 03/09/201612/22 Impingement syndrome of left shoulder 02/17/2016 01/05/2018 Type 2 diabetes mellitus with diabetic retinopat hy 11/03/2015 09/10/2021 documented as of this encounter (statuses as of 05/21/2022) [address]22-2017 History of Past illness Narrative* Problem Noted Date Resolved Date Acute pain of left shoulder 07/12/201712/22 Encounter for sterilization 03/09/201612/22 Impingement syndrome of left shoulder 02/17/2016 01/05/2018 Type 2 diabetes mellitus with diabetic retinopat hy 11/03/2015 09/10/2021 documented as of this encounter (statuses as of 05/25/2022) [address]22-2017 History of Past illness Narrative* Problem Noted Date Resolved Date Acute pain of left shoulder 07/12/201712/22 Encounter for sterilization 03/09/201612/22 Impingement syndrome of left shoulder 02/17/2016 01/05/2018 Type 2 diabetes mellitus with diabetic retinopat hy 11/03/2015 09/10/2021 documented as of this encounter (statuses as of 05/25/2022) [address]22-2017 History of Past illness Narrative* Problem Noted Date Resolved Date Acute pain of left shoulder 07/12/201712/22 Encounter for sterilization 03/09/201612/22 Impingement syndrome of left shoulder 02/17/2016 01/05/2018 Type 2 diabetes mellitus with diabetic retinopat hy 11/03/2015 09/10/2021 documented as of this encounter (statuses as of 05/26/2022) [address]22-2017 History of Past illness Narrative* Problem Noted Date Resolved Date Acute pain of left shoulder 07/12/201712/22 Encounter for sterilization 03/09/201612/22 Impingement syndrome of left shoulder 02/17/2016 01/05/2018 Type 2 diabetes mellitus with diabetic retinopat hy 11/03/2015 09/10/2021 documented as of this encounter (statuses as of 05/28/2022) [address]22-2017 History of Past illness Narrative* Problem Noted Date Resolved Date Acute pain of left shoulder 07/12/201712/22 Encounter for sterilization 03/09/201612/22 Impingement syndrome of left shoulder 02/17/2016 01/05/2018 Type 2 diabetes mellitus with diabetic retinopat hy 11/03/2015 09/10/2021 documented as of this encounter (statuses as of 07/14/2022) [facility] History of Past illness Narrative* Problem Noted Date Resolved Date Acute pain of left shoulder 07/12/201712/22 Encounter for sterilization 03/09/201612/22 Impingement syndrome of left shoulder 02/17/2016 01/05/2018 Type 2 diabetes mellitus with diabetic retinopat hy 11/03/2015 09/10/2021 documented as of this encounter (statuses as of 07/21/2022) [address]22-2017 History of Past illness Narrative* Problem Noted Date Resolved Date Acute pain of left shoulder 07/12/201712/22 Encounter for sterilization 03/09/201612/22 Impingement syndrome of left shoulder 02/17/2016 01/05/2018 Type 2 diabetes mellitus with diabetic retinopat hy 11/03/2015 09/10/2021 documented as of this encounter (statuses as of 08/11/2022) [address]22-2017 History of Past illness Narrative* Problem Noted Date Resolved Date Acute pain of left shoulder 07/12/201712/22 Encounter for sterilization 03/09/201612/22 Impingement syndrome of left shoulder 02/17/2016 01/05/2018 Type 2 diabetes mellitus with diabetic retinopat hy 11/03/2015 09/10/2021 documented as of this encounter (statuses as of 08/23/2022) [address]22-2017 History of Past illness Narrative* Problem Noted Date Resolved Date Acute pain of left shoulder 07/12/201712/22 Encounter for sterilization 03/09/201612/22 Impingement syndrome of left shoulder 02/17/2016 01/05/2018 Type 2 diabetes mellitus with diabetic retinopat hy 11/03/2015 09/10/2021 documented as of this encounter (statuses as of 09/24/2022) [address]22-2017 History of Past illness Narrative* Problem Noted Date Resolved Date Acute pain of left shoulder 07/12/201712/22 Encounter for sterilization 03/09/201612/22 Impingement syndrome of left shoulder 02/17/2016 01/05/2018 Type 2 diabetes mellitus with diabetic retinopat hy 11/03/2015 09/10/2021 documented as of this encounter (statuses as of 09/24/2022) [address]22-2017 History of Past illness Narrative* Problem Noted Date Resolved Date Acute pain of left shoulder 07/12/201712/22 Encounter for sterilization 03/09/201612/22 Impingement syndrome of left shoulder 02/17/2016 01/05/2018 Type 2 diabetes mellitus with diabetic retinopat hy 11/03/2015 09/10/2021 documented as of this encounter (statuses as of 10/22/2022) [address]22-2017 History of Past illness Narrative* Problem Noted Date Resolved Date Acute pain of left shoulder 07/12/201712/22 Encounter for sterilization 03/09/201612/22 Impingement syndrome of left shoulder 02/17/2016 01/05/2018 Type 2 diabetes mellitus with diabetic retinopat hy 11/03/2015 09/10/2021 documented as of this encounter (statuses as of 10/22/2022) [address]22-2017 History of Past illness Narrative* Problem Noted Date Resolved Date Acute pain of left shoulder 07/12/201712/22 Encounter for sterilization 03/09/201612/22 Impingement syndrome of left shoulder 02/17/2016 01/05/2018 Type 2 diabetes mellitus with diabetic retinopat hy 11/03/2015 09/10/2021 documented as of this encounter (statuses as of 10/26/2022) [address]22-2017 History of Past illness Narrative* Problem Noted Date Resolved Date Acute pain of left shoulder 07/12/201712/22 Encounter for sterilization 03/09/201612/22 Impingement syndrome of left shoulder 02/17/2016 01/05/2018 Type 2 diabetes mellitus with diabetic retinopat hy 11/03/2015 09/10/2021 documented as of this encounter (statuses as of 12/14/2022) [address]22-2017 History of Past illness Narrative* Problem Noted Date Resolved Date Acute pain of left shoulder 07/12/201712/22 Encounter for sterilization 03/09/201612/22 Impingement syndrome of left shoulder 02/17/2016 01/05/2018 Type 2 diabetes mellitus with diabetic retinopat hy 11/03/2015 09/10/2021 documented as of this encounter (statuses as of 12/31/2022) [address]22-2017 History of Past illness Narrative* Problem Noted Date Resolved Date Acute pain of left shoulder 07/12/201712/22 Encounter for sterilization 03/09/201612/22 Impingement syndrome of left shoulder 02/17/2016 01/05/2018 Type 2 diabetes mellitus with diabetic retinopat hy 11/03/2015 09/10/2021 documented as of this encounter (statuses as of 01/02/2023) [address]22-2017 History of Past illness Narrative* Problem Noted Date Resolved Date Acute pain of left shoulder 07/12/201712/22 Encounter for sterilization 03/09/201612/22 Impingement syndrome of left shoulder 02/17/2016 01/05/2018 Type 2 diabetes mellitus with diabetic retinopat hy 11/03/2015 09/10/2021 documented as of this encounter (statuses as of 02/22/2023) [address]22-2017 History of Past illness Narrative* Problem Noted Date Resolved Date Acute pain of left shoulder 07/12/201712/22 Encounter for sterilization 03/09/201612/22 Impingement syndrome of left shoulder 02/17/2016 01/05/2018 Type 2 diabetes mellitus with diabetic retinopat hy 11/03/2015 09/10/2021 documented as of this encounter (statuses as of 03/03/2023) [address]22-2017 History of Past illness Narrative* Problem Noted Date Resolved Date Acute pain of left shoulder 07/12/201712/22 Encounter for sterilization 03/09/201612/22 Impingement syndrome of left shoulder 02/17/2016 01/05/2018 Type 2 diabetes mellitus with diabetic retinopat hy 11/03/2015 09/10/2021 documented as of this encounter (statuses as of 03/31/2023) [facility]-22-2017 History of Past illness Narrative* Problem Noted Date Resolved Date Acute pain of left shoulder 07/12/201712/22 Encounter for sterilization 03/09/201612/22 Impingement syndrome of left shoulder 02/17/2016 01/05/2018 Type 2 diabetes mellitus with diabetic retinopat hy 11/03/2015 09/10/2021 documented as of this encounter (statuses as of 05/19/2023) [facility]-2017 History of Past illness Narrative* Problem Noted Date Resolved Date Acute pain of left shoulder 07/12/201712/22 Encounter for sterilization 03/09/201612/22 Impingement syndrome of left shoulder 02/17/2016 01/05/2018 Type 2 diabetes mellitus with diabetic retinopat hy 11/03/2015 09/10/2021 documented as of this encounter (statuses as of 05/23/2023) [facility]-2017 History of Past illness Narrative* Problem Noted Date Resolved Date Acute pain of left shoulder 07/12/201712/22 Encounter for sterilization 03/09/201612/22 Impingement syndrome of left shoulder 02/17/2016 01/05/2018 Type 2 diabetes mellitus with diabetic retinopat hy 11/03/2015 09/10/2021 documented as of this encounter (statuses as of 05/23/2023) [address]22-2017 History of Past illness Narrative* Problem Noted Date Resolved Date Acute pain of left shoulder 07/12/201712/22 Encounter for sterilization 03/09/201612/22 Impingement syndrome of left shoulder 02/17/2016 01/05/2018 Type 2 diabetes mellitus with diabetic retinopat hy 11/03/2015 09/10/2021 documented as of this encounter (statuses as of 05/25/2023) [address]22-2017 History of Past illness Narrative* Problem Noted Date Diagnosed Date Resolved Date Acute pain of left shoulder 07/12/2017 01/05/2018 Encounter for sterilization 03/09/2016 01/06/2017 Impingement syndrome of left shoulder 02/17/2016 01/05/2018 Type 2 diabetes mellitus wit h diabetic retinopathy 11/03/2015 09/10/2021 documented as of this encounter (statuses as of 06/06/2023) [facility]-2017 History of Past illness Narrative* Problem Noted Date Diagnosed Date Resolved Date Acute pain of left shoulder 07/12/2017 01/05/2018 Encounter for sterilization 03/09/2016 01/06/2017 Impingement syndrome of left shoulder 02/17/2016 01/05/2018 Type 2 diabetes mellitus wit h diabetic retinopathy 11/03/2015 09/10/2021 documented as of this encounter (statuses as of 06/17/2023) [facility]-2017 History of Past illness Narrative* Problem Noted Date Diagnosed Date Resolved Date Acute pain of left shoulder 07/12/2017 01/05/2018 Encounter for sterilization 03/09/2016 01/06/2017 Impingement syndrome of left shoulder 02/17/2016 01/05/2018 Type 2 diabetes mellitus wit h diabetic retinopathy 11/03/2015 09/10/2021 documented as of this encounter (statuses as of 06/20/2023) [facility]-2017 History of Past illness Narrative* Problem Noted Date Diagnosed Date Resolved Date Acute pain of left shoulder 07/12/2017 01/05/2018 Encounter for sterilization 03/09/2016 01/06/2017 Impingement syndrome of left shoulder 02/17/2016 01/05/2018 Type 2 diabetes mellitus wit h diabetic retinopathy 11/03/2015 09/10/2021 documented as of this encounter (statuses as of 06/22/2023) [address]22-2017 History of Past illness Narrative* Problem Noted Date Diagnosed Date Resolved Date Acute pain of left shoulder 07/12/2017 01/05/2018 Encounter for sterilization 03/09/2016 01/06/2017 Impingement syndrome of left shoulder 02/17/2016 01/05/2018 Type 2 diabetes mellitus wit h diabetic retinopathy 11/03/2015 09/10/2021 documented as of this encounter (statuses as of 06/23/2023) [address]22-2017 History of Past illness Narrative* Problem Noted Date Diagnosed Date Resolved Date Acute pain of left shoulder 07/12/2017 01/05/2018 Encounter for sterilization 03/09/2016 01/06/2017 Impingement syndrome of left shoulder 02/17/2016 01/05/2018 Type 2 diabetes mellitus wit h diabetic retinopathy 11/03/2015 09/10/2021 documented as of this encounter (statuses as of 07/12/2023) [address]22-2017 History of Past illness Narrative* Problem Noted Date Diagnosed Date Resolved Date Acute pain of left shoulder 07/12/2017 01/05/2018 Encounter for sterilization 03/09/2016 01/06/2017 Impingement syndrome of left shoulder 02/17/2016 01/05/2018 Type 2 diabetes mellitus wit h diabetic retinopathy 11/03/2015 09/10/2021 documented as of this encounter (statuses as of 07/14/2023) [address]22-2017 History of Past illness Narrative* Problem Noted Date Diagnosed Date Resolved Date Acute pain of left shoulder 07/12/2017 01/05/2018 Encounter for sterilization 03/09/2016 01/06/2017 Impingement syndrome of left shoulder 02/17/2016 01/05/2018 Type 2 diabetes mellitus wit h diabetic retinopathy 11/03/2015 09/10/2021 documented as of this encounter (statuses as of 07/21/2023) [address]22-2017 History of Past illness Narrative* Problem Noted Date Diagnosed Date Resolved Date Acute pain of left shoulder 07/12/2017 01/05/2018 Encounter for sterilization 03/09/2016 01/06/2017 Impingement syndrome of left shoulder 02/17/2016 01/05/2018 Type 2 diabetes mellitus wit h diabetic retinopathy 11/03/2015 09/10/2021 documented as of this encounter (statuses as of 07/22/2023) [address]22-2017 History of Past illness Narrative* Problem Noted Date Diagnosed Date Resolved Date Acute pain of left shoulder 07/12/2017 01/05/2018 Encounter for sterilization 03/09/2016 01/06/2017 Impingement syndrome of left shoulder 02/17/2016 01/05/2018 Type 2 diabetes mellitus wit h diabetic retinopathy 11/03/2015 09/10/2021 documented as of this encounter (statuses as of 08/26/2023) [address]22-2017 History of Past illness Narrative* Problem Noted Date Diagnosed Date Resolved Date Acute pain of left shoulder 07/12/2017 01/05/2018 Encounter for sterilization 03/09/2016 01/06/2017 Impingement syndrome of left shoulder 02/17/2016 01/05/2018 Type 2 diabetes mellitus wit h diabetic retinopathy 11/03/2015 09/10/2021 documented as of this encounter (statuses as of 08/27/2023) [facility]-2017 History of Past illness Narrative* Problem Noted Date Diagnosed Date Resolved Date Acute pain of left shoulder 07/12/2017 01/05/2018 Encounter for sterilization 03/09/2016 01/06/2017 Impingement syndrome of left shoulder 02/17/2016 01/05/2018 Type 2 diabetes mellitus wit h diabetic retinopathy 11/03/2015 09/10/2021 documented as of this encounter (statuses as of 09/02/2023) [place] [id number] History of Past illness Narrative* Problem Noted Date Diagnosed Date Resolved Date Acute pain of left shoulder 07/12/2017 01/05/2018 Encounter for sterilization 03/09/2016 01/06/2017 Impingement syndrome of left shoulder 02/17/2016 01/05/2018 Type 2 diabetes mellitus wit h diabetic retinopathy 11/03/2015 09/10/2021 documented as of this encounter (statuses as of 09/05/2023) [address]22-2017 History of Past illness Narrative* Problem Noted Date Diagnosed Date Resolved Date Acute pain of left shoulder 07/12/2017 01/05/2018 Encounter for sterilization 03/09/2016 01/06/2017 Impingement syndrome of left shoulder 02/17/2016 01/05/2018 Type 2 diabetes mellitus wit h diabetic retinopathy 11/03/2015 09/10/2021 documented as of this encounter (statuses as of 09/30/2023) [address]22-2017 History of Past illness Narrative* Problem Noted Date Diagnosed Date Resolved Date Acute pain of left shoulder 07/12/2017 01/05/2018 Encounter for sterilization 03/09/2016 01/06/2017 Impingement syndrome of left shoulder 02/17/2016 01/05/2018 Type 2 diabetes mellitus wit h diabetic retinopathy 11/03/2015 09/10/2021 documented as of this encounter (statuses as of 10/20/2023) [facility] History of Past illness Narrative* Problem Noted Date Diagnosed Date Resolved Date Acute pain of left shoulder 07/12/2017 01/05/2018 Encounter for sterilization 03/09/2016 01/06/2017 Impingement syndrome of left shoulder 02/17/2016 01/05/2018 Type 2 diabetes mellitus wit h diabetic retinopathy 11/03/2015 09/10/2021 documented as of this encounter (statuses as of 10/21/2023) [facility]2017 History of Past illness Narrative* Problem Noted Date Diagnosed Date Resolved Date Acute pain of left shoulder 07/12/2017 01/05/2018 Encounter for sterilization 03/09/2016 01/06/2017 Impingement syndrome of left shoulder 02/17/2016 01/05/2018 Type 2 diabetes mellitus wit h diabetic retinopathy 11/03/2015 09/10/2021 documented as of this encounter (statuses as of 10/31/2023) [facility] History of Past illness Narrative* Problem Noted Date Diagnosed Date Resolved Date Acute pain of left shoulder 07/12/2017 01/05/2018 Encounter for sterilization 03/09/2016 01/06/2017 Impingement syndrome of left shoulder 02/17/2016 01/05/2018 Type 2 diabetes mellitus wit h diabetic retinopathy 11/03/2015 09/10/2021 documented as of this encounter (statuses as of 11/01/2023) [facility] Diagnosis Fever with exposure to COVID-19 virus- Primary [facility] Diagnosis 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)- Primary 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) [facility] Diagnosis Type 2 diabetes mellitus with retinopathy of both eyes, with long-term current use of insulin, macular edema presence unspecified, unspecified retinopathy severity (HCC) Type 1 diabetes mellitus with proliferative retinopathy, macular edema presence unspecified, unspecified laterality, unspecified proliferative retinopathy type (HCC) [facility] Diagnosis Type 2 diabetes mellitus with retinopathy of both eyes, with long-term current use of insulin, macular edema presence unspecified, unspecified retinopathy severity (HCC) Type 1 diabetes mellitus with proliferative retinopathy, macular edema presence unspecified, unspecified laterality, unspecified proliferative retinopathy type (HCC) [facility] Diagnosis Type 2 diabetes mellitus with retinopathy of both eyes, with long-term current use of insulin, macular edema presence unspecified, unspecified retinopathy severity (HCC) Type 1 diabetes mellitus with proliferative retinopathy, macular edema presence unspecified, unspecified laterality, unspecified proliferative retinopathy type (HCC) [facility] Diagnosis Type 1 diabetes mellitus with proliferative retinopathy, macular edema presence unspecified, unspecified laterality, unspecified proliferative retinopathy type (HCC)- Primary Acquired hypothyroidism Unspecified hypothyroidism Hyperlipidemia, unspecified hyperlipidemia type Primary hypertension Unspecified essential hypertension Need for COVID-19 vaccine [facility] Diagnosis 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)- Primary 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) [facility] Diagnosis Acquired hypothyroidism Unspecified hypothyroidism [facility] Diagnosis Type 1 diabetes mellitus with proliferative retinopathy, macular edema presence unspecified, unspecified laterality, unspecified proliferative retinopathy type (HCC) [facility] Diagnosis 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)- Primary Hyperlipidemia, unspecified hyperlipidemia type Primary hypertension Unspecified essential hypertension Acquired hypothyroidism Unspecified hypothyroidism [facility]* Diagnosis Type 1 diabetes mellitus with proliferative retinopathy, macular edema presence unspecified, unspecified laterality, unspecified proliferative retinopathy type (HCC) [facility]* Diagnosis Type 2 diabetes mellitus with retinopathy of both eyes, with long-term current use of insulin, macular edema presence unspecified, unspecified retinopathy severity (HCC) [facility]* Diagnosis Essential hypertension Unspecified essential hypertension Hyperlipidemia, unspecified hyperlipidemia type [facility] 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 note* Diagnosis Controlled type 1 diabetes mellitus with hyperglycemia (HCC)- Primary Type 1 diabetes mellitus with proliferative retinopathy, macular edema presence unspecified, unspecified laterality, unspecified proliferative retinopathy type (HCC) Insulin resistance Dysmetabolic Syndrome X documented in this encounter [facility] note* Diagnosis Controlled type 1 diabetes mellitus with hyperglycemia (HCC) documented in this encounter [facility] note* Diagnosis Controlled type 1 diabetes mellitus with hyperglycemia (HCC) documented in this encounter 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 note* Diagnosis Controlled type 1 diabetes mellitus with hyperglycemia (HCC) documented in this encounter 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 note* Diagnosis Controlled type 1 diabetes mellitus with hyperglycemia (HCC)- Primary documented in this encounter [facility] note* Diagnosis Controlled type 1 diabetes mellitus with hyperglycemia (HCC)- Primary Insulin resistance Dysmetabolic Syndrome X Insulin pump status documented in this encounter [facility] note* Diagnosis Acquired hypothyroidism Unspecified hypothyroidism documented in this encounter [facility] note* Diagnosis Controlled type 1 diabetes mellitus with hyperglycemia (HCC) Insulin resistance Dysmetabolic Syndrome X documented in this encounter [facility] note* Diagnosis Gastroesophageal reflux disease without esophagitis Esophageal reflux documented in this encounter [facility] note* Diagnosis Essential hypertension Unspecified essential hypertension documented in this encounter [facility] note* Diagnosis Hyperlipidemia, unspecified hyperlipidemia type documented in this encounter 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 Acquired hypothyroidism Unspecified hypothyroidism documented in this encounter [facility] Summary Purpose Family History No Family History Records FoundNo Family History Records FoundNo Family History Records Found Advance Directives No Advanced Directives Records FoundDocuments on File Type Date Recorded Patient Healthcare Risk Control Consultant Expl anation Advance Directive(s) 02/14/2018 7:48 AM Advance Directive(s) 02/01/2018 9:50 AM Medications Administered Section Inactive Administered Medications - up to 3 most recent administrations Medication Order MAR Action Action Date Dose Rate Site aflibercept intravitreal injection 2 mg/0.05 mL (EYLEA) 2 mg, ONE TIME INJECTION, 1 dose, Starting on Tue12/14/22 at 0830, Until Tue12/14/22 at 0830 Given 12/14/2022 8:30 AM EST 2 mg Left aflibercept intravitreal injection 2 mg/0.05 mL (EYLEA) 2 mg, ONE TIME INJECTION, 1 dose, Starting on Tue12/14/22 at 0830, Until Tue12/14/22 at 0830 Given 12/14/2022 8:30 AM EST 2 mg Right Active Administered Medications - up to 3 most recent administrations Medication Order MAR Action Action Date Dose Rate Site PHENYLephrine 2.5 % 1 Drop (AK-DILATE, HALEIGH-SYNEPHRINE) 1 Drop, BOTH EYES, DIRECTED, Starting on Tue02/22/23 at 0830, Until Tue02/22/23 at 2028, Administer for dilation PROTECT FROM LIGHT Given 02/22/2023 8:30 AM EDT 1 Drop tropicamide 1 % 1 Drop (MYDRIACYL) 1 Drop, BOTH EYES, DIRECTED, Starting on Tue02/22/23 at 0830, Until Tue02/22/23 at 2028, Administer for dilation Given 02/22/2023 8:30 AM EDT 1 Drop Inactive Administered Medications - up to 3 most recent administrations Medication Order MAR Action Action Date Dose Rate Site aflibercept intravitreal injection 2 mg/0.05 mL (EYLEA) 2 mg, ONE TIME INJECTION, 1 dose, Starting on Tue02/22/23 at 0921, Until Tue02/22/23 at 09 Given 02/22/2023 9:21 AM EDT 2 mg Left aflibercept intravitreal injection 2 mg/0.05 mL (EYLEA) 2 mg, ONE TIME INJECTION, 1 dose, Starting on Tue02/22/23 at 0921, Until Tue02/22/23 at 09 Given 02/22/2023 9:21 AM EDT 2 mg Right Inactive Administered Medications - up to 3 most recent administrations Medication Order MAR Action Action Date Dose Rate Site aflibercept intravitreal injection 2 mg/0.05 mL (EYLEA) 2 mg, ONE TIME INJECTION, 1 dose, Starting on Tue07/12/23 at 0851, Until Tue07/12/23 at 0851 Given 07/12/2023 8:51 AM EDT 2 mg Right aflibercept intravitreal injection 2 mg/0.05 mL (EYLEA) 2 mg, ONE TIME INJECTION, 1 dose, Starting on Tue07/12/23 at 0851, Until Tue07/12/23 at 0851 Given 07/12/2023 8:51 AM EDT 2 mg Left Reason for Referral Specialty Diagnoses / Procedures Referred By Kole mckeon Referred To Contact Diagnoses Controlled type 1 diabetes mellitus with hyperglycemia (HCC) Winifred Brooks MD [address] [place] [address] Referral ID Status Reason Start Date Expiration Date V isits Requested Visits Authorized [id number] Pending Review 1 1 Referral ID Status Reason Start Date Expiration Date V isits Requested Visits Authorized [id number] Pending Review 1 1 Specialty Diagnoses / Procedures Referred By Kole mckeon Referred To Contact Diagnoses Type 1 diabetes mellitus with proliferative retinopathy, macular edema presence unspecified, unspecified laterality, unspecified proliferative retinopathy type (HCC) Controlled type 1 diabetes mellitus with hyperglycemia (HCC) Procedures CONSULT TO DIABETES EDUCATION DSME/MNT MEDICAL NUTRITION ASSMT&IVNTJ INDIV EACH 15 AR MEDICAL NUTRITION ASSMT&IVNTJ INDIV EACH 15 AR MEDICAL NUTRITION ASSMT&IVNTJ INDIV EACH 15 AR MEDICAL NUTRITION ASSMT&IVNTJ INDIV EACH 15 AR Winifred Brooks MD [address] [place] [address] Referral ID Status Reason Start Date Expiration Date Visits Requested Visits Authorized [id number] Pending Review PCP Requested Referral 05/18/2023 05/17/2024 1 1 Referral ID Status Reason Start Date Expiration Date V isits Requested Visits Authorized [id number] Pending Review 1 1 Additional Source Comments (unrecognized sect ion and content) No Status Records FoundNo Status Records Found INFORMATION SOURCE (unrecogn ized section and content) DATE CREATED AUTHOR AUTHOR'S ORGANIZ ATION 10/01/2023 [facility] DATE CREATED AUTHOR AUTHOR'S ORGANIZ ATION 11/22/2023 [facility] Source Comments (unrecognize d section and content) In the event this informatio n is protected by the Federal Confidentiality of Alcohol and Drug Abuse Patient Records regulations: The Federal rules restrict any use of the information to criminally investigate or prosecute any alcohol or drug abuse patient.[facility] the event this information is protected by the Federal Confidentiality of Alcohol and Drug Abuse Patient Records regulations: The Federal rules restrict any use of the information to criminally investigate or prosecute any alcohol or drug abuse patient.[facility] the event this information is protected by the Federal Confidentiality of Alcohol and Drug Abuse Patient Records regulations: The Federal rules restrict any use of the information to criminally investigate or prosecute any alcohol or drug abuse patient.[facility] the event this information is protected by the Federal Confidentiality of Alcohol and Drug Abuse Patient Records regulations: The Federal rules restrict any use of the information to criminally investigate or prosecute any alcohol or drug abuse patient.[facility]In the event this information is protected by the Federal Confidentiality of Alcohol and Drug Abuse Patient Records regulations: The Federal rules restrict any use of the information to criminally investigate or prosecute any alcohol or drug abuse patient.[facility]In the event this information is protected by the Federal Confidentiality of Alcohol and Drug Abuse Patient Records regulations: The Federal rules restrict any use of the information to criminally investigate or prosecute any alcohol or drug abuse patient.[facility] HospitalIn the event this information is protected by the Federal Confidentiality of Alcohol and Drug Abuse Patient Records regulations: The Federal rules restrict any use of the information to criminally investigate or prosecute any alcohol or drug abuse patient.[facility] HospitalIn the event this information is protected by the Federal Confidentiality of Alcohol and Drug Abuse Patient Records regulations: The Federal rules restrict any use of the information to criminally investigate or prosecute any alcohol or drug abuse patient.[facility] HospitalIn the event this information is protected by the Federal Confidentiality of Alcohol and Drug Abuse Patient Records regulations: The Federal rules restrict any use of the information to criminally investigate or prosecute any alcohol or drug abuse patient.[facility] HospitalIn the event this information is protected by the Federal Confidentiality of Alcohol and Drug Abuse Patient Records regulations: The Federal rules restrict any use of the information to criminally investigate or prosecute any alcohol or drug abuse patient.[facility] HospitalIn the event this information is protected by the Federal Confidentiality of Alcohol and Drug Abuse Patient Records regulations: The Federal rules restrict any use of the information to criminally investigate or prosecute any alcohol or drug abuse patient.[facility] HospitalIn the event this information is protected by the Federal Confidentiality of Alcohol and Drug Abuse Patient Records regulations: The Federal rules restrict any use of the information to criminally investigate or prosecute any alcohol or drug abuse patient.[facility] HospitalIn the event this information is protected by the Federal Confidentiality of Alcohol and Drug Abuse Patient Records regulations: The Federal rules restrict any use of the information to criminally investigate or prosecute any alcohol or drug abuse patient.[facility] HospitalIn the event this information is protected by the Federal Confidentiality of Alcohol and Drug Abuse Patient Records regulations: The Federal rules restrict any use of the information to criminally investigate or prosecute any alcohol or drug abuse patient.[facility] HospitalIn the event this information is protected by the Federal Confidentiality of Alcohol and Drug Abuse Patient Records regulations: The Federal rules restrict any use of the information to criminally investigate or prosecute any alcohol or drug abuse patient.[facility] HospitalIn the event this information is protected by the Federal Confidentiality of Alcohol and Drug Abuse Patient Records regulations: The Federal rules restrict any use of the information to criminally investigate or prosecute any alcohol or drug abuse patient.[facility] HospitalIn the event this information is protected by the Federal Confidentiality of Alcohol and Drug Abuse Patient Records regulations: The Federal rules restrict any use of the information to criminally investigate or prosecute any alcohol or drug abuse patient.[facility] HospitalIn the event this information is protected by the Federal Confidentiality of Alcohol and Drug Abuse Patient Records regulations: The Federal rules restrict any use of the information to criminally investigate or prosecute any alcohol or drug abuse patient.[facility] HospitalIn the event this information is protected by the Federal Confidentiality of Alcohol and Drug Abuse Patient Records regulations: The Federal rules restrict any use of the information to criminally investigate or prosecute any alcohol or drug abuse patient.[facility] HospitalIn the event this information is protected by the Federal Confidentiality of Alcohol and Drug Abuse Patient Records regulations: The Federal rules restrict any use of the information to criminally investigate or prosecute any alcohol or drug abuse patient.[facility] HospitalIn the event this information is protected by the Federal Confidentiality of Alcohol and Drug Abuse Patient Records regulations: The Federal rules restrict any use of the information to criminally investigate or prosecute any alcohol or drug abuse patient.[facility] HospitalIn the event this information is protected by the Federal Confidentiality of Alcohol and Drug Abuse Patient Records regulations: The Federal rules restrict any use of the information to criminally investigate or prosecute any alcohol or drug abuse patient.[facility] HospitalIn the event this information is protected by the Federal Confidentiality of Alcohol and Drug Abuse Patient Records regulations: The Federal rules restrict any use of the information to criminally investigate or prosecute any alcohol or drug abuse patient.[facility] HospitalIn the event this information is protected by the Federal Confidentiality of Alcohol and Drug Abuse Patient Records regulations: The Federal rules restrict any use of the information to criminally investigate or prosecute any alcohol or drug abuse patient.[facility] HospitalIn the event this information is protected by the Federal Confidentiality of Alcohol and Drug Abuse Patient Records regulations: The Federal rules restrict any use of the information to criminally investigate or prosecute any alcohol or drug abuse patient.[facility] HospitalIn the event this information is protected by the Federal Confidentiality of Alcohol and Drug Abuse Patient Records regulations: The Federal rules restrict any use of the information to criminally investigate or prosecute any alcohol or drug abuse patient.[facility] HospitalIn the event this information is protected by the Federal Confidentiality of Alcohol and Drug Abuse Patient Records regulations: The Federal rules restrict any use of the information to criminally investigate or prosecute any alcohol or drug abuse patient.[facility] HospitalIn the event this information is protected by the Federal Confidentiality of Alcohol and Drug Abuse Patient Records regulations: The Federal rules restrict any use of the information to criminally investigate or prosecute any alcohol or drug abuse patient.[facility] HospitalIn the event this information is protected by the Federal Confidentiality of Alcohol and Drug Abuse Patient Records regulations: The Federal rules restrict any use of the information to criminally investigate or prosecute any alcohol or drug abuse patient.[facility] HospitalIn the event this information is protected by the Federal Confidentiality of Alcohol and Drug Abuse Patient Records regulations: The Federal rules restrict any use of the information to criminally investigate or prosecute any alcohol or drug abuse patient.[facility] HospitalIn the event this information is protected by the Federal Confidentiality of Alcohol and Drug Abuse Patient Records regulations: The Federal rules restrict any use of the information to criminally investigate or prosecute any alcohol or drug abuse patient.[facility] HospitalIn the event this information is protected by the Federal Confidentiality of Alcohol and Drug Abuse Patient Records regulations: The Federal rules restrict any use of the information to criminally investigate or prosecute any alcohol or drug abuse patient.[facility] HospitalIn the event this information is protected by the Federal Confidentiality of Alcohol and Drug Abuse Patient Records regulations: The Federal rules restrict any use of the information to criminally investigate or prosecute any alcohol or drug abuse patient.[facility] HospitalIn the event this information is protected by the Federal Confidentiality of Alcohol and Drug Abuse Patient Records regulations: The Federal rules restrict any use of the information to criminally investigate or prosecute any alcohol or drug abuse patient.[facility] HospitalIn the event this information is protected by the Federal Confidentiality of Alcohol and Drug Abuse Patient Records regulations: The Federal rules restrict any use of the information to criminally investigate or prosecute any alcohol or drug abuse patient.[facility] HospitalIn the event this information is protected by the Federal Confidentiality of Alcohol and Drug Abuse Patient Records regulations: The Federal rules restrict any use of the information to criminally investigate or prosecute any alcohol or drug abuse patient.[facility] HospitalIn the event this information is protected by the Federal Confidentiality of Alcohol and Drug Abuse Patient Records regulations: The Federal rules restrict any use of the information to criminally investigate or prosecute any alcohol or drug abuse patient.[facility] HospitalIn the event this information is protected by the Federal Confidentiality of Alcohol and Drug Abuse Patient Records regulations: The Federal rules restrict any use of the information to criminally investigate or prosecute any alcohol or drug abuse patient.[facility] HospitalIn the event this information is protected by the Federal Confidentiality of Alcohol and Drug Abuse Patient Records regulations: The Federal rules restrict any use of the information to criminally investigate or prosecute any alcohol or drug abuse patient.[facility] HospitalIn the event this information is protected by the Federal Confidentiality of Alcohol and Drug Abuse Patient Records regulations: The Federal rules restrict any use of the information to criminally investigate or prosecute any alcohol or drug abuse patient.[facility] HospitalIn the event this information is protected by the Federal Confidentiality of Alcohol and Drug Abuse Patient Records regulations: The Federal rules restrict any use of the information to criminally investigate or prosecute any alcohol or drug abuse patient.[facility] HospitalIn the event this information is protected by the Federal Confidentiality of Alcohol and Drug Abuse Patient Records regulations: The Federal rules restrict any use of the information to criminally investigate or prosecute any alcohol or drug abuse patient.[facility] HospitalIn the event this information is protected by the Federal Confidentiality of Alcohol and Drug Abuse Patient Records regulations: The Federal rules restrict any use of the information to criminally investigate or prosecute any alcohol or drug abuse patient.[facility] HospitalIn the event this information is protected by the Federal Confidentiality of Alcohol and Drug Abuse Patient Records regulations: The Federal rules restrict any use of the information to criminally investigate or prosecute any alcohol or drug abuse patient.[facility] HospitalIn the event this information is protected by the Federal Confidentiality of Alcohol and Drug Abuse Patient Records regulations: The Federal rules restrict any use of the information to criminally investigate or prosecute any alcohol or drug abuse patient.[facility] HospitalIn the event this information is protected by the Federal Confidentiality of Alcohol and Drug Abuse Patient Records regulations: The Federal rules restrict any use of the information to criminally investigate or prosecute any alcohol or drug abuse patient.[facility] HospitalIn the event this information is protected by the Federal Confidentiality of Alcohol and Drug Abuse Patient Records regulations: The Federal rules restrict any use of the information to criminally investigate or prosecute any alcohol or drug abuse patient.[facility] HospitalIn the event this information is protected by the Federal Confidentiality of Alcohol and Drug Abuse Patient Records regulations: The Federal rules restrict any use of the information to criminally investigate or prosecute any alcohol or drug abuse patient.[facility] Reason for Visit (unrecogniz ed section and content) Specialty Diagnoses / Procedures Referred By Contact Referred To Contact Ophthalmology / OPHTHALMOLOGY Diagnoses 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, right eye 8-10 W, DTI EYLEA OU Procedures AFLIBERCEPT INJECTION INJECTION Emily Abrams MD [address] [place] [address] Emily Abrams [place] [address] [place] [address] Referral ID Status Reason Start Date Expiration Date V isits Requested Visits Authorized [id number] Authorized 12/14/2022 11/20/2023 99 99 Reason Comments Appointment Reason Comments Covid19 Concern Reason Onset Date Comments Refill Request 05/12/2022 Reason Onset Date Comments Refill Request 05/21/2022 PER PATIENT CANC EL Reason Onset Date Comments Refill Request 05/25/2022 Reason Comments Refill Request Reason Comments Insurance Authorization Dexcom G6 Sensor , Commodity Supervisor and Transmitter Reason Comments Follow Up Reason Onset Date Comments Refill Request 08/11/2022 Reason Comments Orders Reason Onset Date Comments Refill Request 10/21/2022 Reason Onset Date Comments Refill Request 10/26/2022 Reason Comments Type 1 diabetes mellitus with proliferat kvng retinopathy RIGHT EYE Diabetes Sugars this morning 122 Referral ID Status Reason Start Date Expiration Date V isits Requested Visits Authorized [id number] Pending Review 12/14/2022 03/14/2023 12 12 Reason Comments Forms [facility] Reason Comments Rx Refills Sensor and Transmitt er Reason Comments Proliferative Diabetic Retinopathy Follo w Up right eye Nonproliferative Diabetic Retinopathy Fo llow Up left eye,severe Reason Onset Date Comments Refill Request 03/01/2023 Reason Comments Forms Reason Comments Follow Up Reason Comments Med Change Request Reason Comments Med Change Request Reason Comments Insurance Authorization OMNIPOD 5 G6 INT RO KIT, GEN 5, crtg Reason Comments CHART NOTES Reason Comments F/U 6 months Reason Comments Diabetes Instruct F/u Rn Insulin pump fo llow up Reason Comments Opened In Error Reason Comments Orders Need orders for Insu edy pump start, please order vials of insulin for use with the pump. Reason Onset Date Comments Refill Request 07/21/2023 Reason Comments Ambulatory Social Work Reason Comments Chart Notes Reason Onset Date Comments Refill Request Refill Request 09/05/2023 Reason Onset Date Comments Refill Request 10/20/2023 Reason Onset Date Comments Refill Request 10/28/2023 Care Teams (unrecognized sec tion and content) Technical Account Executive Relationship Specialty Start Date End Date Rafael Crow MD [address] [place], [place] [id number] PCP - General Internal Medicine 11/03/15 Technical Account Executive Relationship Specialty Start Date End Date Rafael Crow MD [address] [place], [place] [id number] PCP - General Internal Medicine 11/03/15 Technical Account Executive Relationship Specialty Start Date End Date Rafael Crow MD [address] [place], [place] [id number] PCP - General Internal Medicine 11/03/15 Technical Account Executive Relationship Specialty Start Date End Date Rafael Crow MD [address] [place] [address] PCP - General Internal Medicine 11/03/15 Technical Account Executive Relationship Specialty Start Date End Date Rafael Crow MD [address] [facility] [place] [address] PCP - General Internal Medicine 11/03/15 Technical Account Executive Relationship Specialty Start Date End Date Rafael Crow MD [address] [facility] [place] [address] PCP - General Internal Medicine 11/03/15 Technical Account Executive Relationship Specialty Start Date End Date Rafael Crow MD [facility] [place] [address] PCP - General Internal Medicine 11/03/15 Technical Account Executive Relationship Specialty Start Date End Date Rafael Crow MD [facility] [place] [address] PCP - General Internal Medicine 11/03/15 Technical Account Executive Relationship Specialty Start Date End Date Rafael Crow MD [facility] [place] [address] PCP - General Internal Medicine 11/03/15 Technical Account Executive Relationship Specialty Start Date End Date Rafael Crow MD [facility] [place] [address] PCP - General Internal Medicine 11/03/15 Technical Account Executive Relationship Specialty Start Date End Date Rafael Crow MD [facility] [place] [address] PCP - General Internal Medicine 11/03/15 Technical Account Executive Relationship Specialty Start Date End Date Rafael Crow MD [facility] [place] [address] PCP - General Internal Medicine 11/03/15 Technical Account Executive Relationship Specialty Start Date End Date Rafael Crow MD [address] [facility] [place] [address] PCP - General Internal Medicine 11/03/15 Technical Account Executive Relationship Specialty Start Date End Date Rafael Crow MD [address] [facility] [place] [address] PCP - General Internal Medicine 11/03/15 Technical Account Executive Relationship Specialty Start Date End Date Rafael Crow MD [address] [facility] [place] [address] PCP - General Internal Medicine 11/03/15 Technical Account Executive Relationship Specialty Start Date End Date Rafael Crow MD [address] [facility] [place] [address] PCP - General Internal Medicine 11/03/15 Technical Account Executive Relationship Specialty Start Date End Date Rafael Crow MD [address] [facility] [place] [address] PCP - General Internal Medicine 11/03/15 Technical Account Executive Relationship Specialty Start Date End Date Rafael Crow MD [address] [facility] [place] [address] PCP - General Internal Medicine 11/03/15 Technical Account Executive Relationship Specialty Start Date End Date Rafael Crow MD [address] [facility] [place] [address] PCP - General Internal Medicine 11/03/15 Technical Account Executive Relationship Specialty Start Date End Date Rafael Crow MD [address] [facility] [place] [address] PCP - General Internal Medicine 11/03/15 Technical Account Executive Relationship Specialty Start Date End Date Rafael Crow MD [address] [facility] [place] [address] PCP - General Internal Medicine 11/03/15 Technical Account Executive Relationship Specialty Start Date End Date Rafael Crow MD [address] [facility] [place] [address] PCP - General Internal Medicine 11/03/15 Technical Account Executive Relationship Specialty Start Date End Date Rafael Crow MD [address] [place] [address] PCP - General Internal Medicine 11/03/15 Technical Account Executive Relationship Specialty Start Date End Date Rafael Crow MD [address] [place] [address] PCP - General Internal Medicine 11/03/15 Technical Account Executive Relationship Specialty Start Date End Date Rafael Crow MD [address] [place] [address] PCP - General Internal Medicine 11/03/15 Technical Account Executive Relationship Specialty Start Date End Date Rafael Crow MD [address] [place] [address] PCP - General Internal Medicine 11/03/15 Technical Account Executive Relationship Specialty Start Date End Date Rafael Crow MD [address] [place] [address] PCP - General Internal Medicine 11/03/15 Technical Account Executive Relationship Specialty Start Date End Date Rafael Crow MD [address] [place] [address] PCP - General Internal Medicine 11/03/15 FOR RECORDS PERTAINING TO PATIENTS WHO ARE OR HAVE BEEN ENROLLED IN A CHEMICAL DEPENDENCY/SUBSTANCEABUSE PROGRAM, SOME INFORMATION MAY BE OMITTED. This clinical summary was aggregated from multiple sources. Caution should be exercised in using it in the provision of clinical care. This summary normalizes information from multiple sources, and as a consequence, information in this document may materially change the coding, format and clinical context of patient data. In addition, data may be omitted in some cases. CLINICAL DECISIONS SHOULD BE BASED ON THE PRIMARY CLINICAL RECORDS. [facility]. provides no warranty or guarantee of the accuracy or completeness of information in this document.
[2023-12-18 03:24] LABS: Anion Gap 5 (5-15); BUN 19 mg/dL (7-18); BUN/Creat Ratio 17.3 RATIO (10-20); Calcium,Total 9.5 mg/dL (8.5-10.1); Chloride 109 mmol/L (98-107); EST Glomerular Filtration Rate 73 mL/min (>60); Est Glom Filt Rate - Afr Amer 88 mL/min (>60); Estimated Creatinine Clearance 87.98 ml/min; Glucose 136 mg/dL (74-106); Potassium 3.5 mmol/L (3.5-5.1); Sodium Level 140 mmol/L (136-145)
[2023-12-18 03:38] VITALS: BP 127/79; BP 134/80; BP 138/72; PULSE 70; PULSE 77; PULSE 79
[2023-12-18 03:53] LABS: Differential Comment SCANNED
[2023-12-18] MEDS: 0.9% Normal Saline (1000mL) 1,000 ML 1000 ML IV (03:53)
[2023-12-18] MEDS: Dicyclomine 10 MG Capsule 20 MG PO (04:05)
[2023-12-18] MEDS: Acetaminophen 325 MG Tablet 650 MG PO (04:07)
[2023-12-18 04:25] LABS: Bacteria 0 SEEN /hpf (None Seen); Color, Urine Yellow (Yellow); Glucose, Dipstick Normal (Normal); Ketone-Dipstick 50 mg/dl (Negative); Leukocyte Esterase-Dipstick Negative /ul (Negative); Mucous, Urine 0 SEEN /hpf (<or=2+); Nitrite-Dipstick Negative (Negative); Occult Blood-Urine Negative /ul (Negative); Protein-Dipstick Negative (Negative); Red Blood Cells-Urine 0 SEEN /hpf (0-5); Specific Gravity, Urine 1.025 (1.002-1.030); Squamous Epithelial Cells - UA 0 SEEN /hpf (0-5); Urine Bilirubin Dipstick Negative (Negative); Urine Clarity Clear (Clear); Urine Urobilinogen Normal (Normal); White Blood Cells 0 SEEN /hpf (0-5)
[2023-12-18 05:00] VITALS: BP 122/62; PULSE 62; RESP 22; O2SAT 96
[2023-12-18 05:02] VITALS: BP 126/62; PULSE 62; RESP 22; O2SAT 96
[2023-12-19 13:05] LABS: Pathologist Review Reviewed
== END 2023-12-18 05:03 | disposition home or self-care (01) ==
PROVIDERS: Emergency Provider Emergency Medicine; PCP Internal Medicine; Visit Provider Emergency Medicine
DX: R55 Syncope and collapse (principal); E10.10 Type 1 diabetes mellitus with ketoacidosis without coma; M79.604 Pain in right leg; E78.5 Hyperlipidemia, unspecified; D72.829 Elevated white blood cell count, unspecified; M79.605 Pain in left leg; I10 Essential (primary) hypertension; E03.9 Hypothyroidism, unspecified; Z79.890 Hormone replacement therapy; Z79.899 Other long term (current) drug therapy; E86.0 Dehydration; S01.312A Laceration without foreign body of left ear, initial encounter; R19.5 Other fecal abnormalities; R10.9 Unspecified abdominal pain; W19.XXXA Unspecified fall, initial encounter
CPT/HCPCS: 74022; 80048; 81001; 82274; 82962; 85025; 90715; 96360; 99285; J7030; A4216